=== PATIENT | male | born 1940 | race American Indian/Alaskan Native ===

== ENCOUNTER 2021-01-15 12:33 | Inpatient (IN) | payer MEDICARE ==
--- NOTE | 2021-01-15 12:40 | Emergency Department Report ---
ED General Adult HPI - General Chief complaint: Medical Clearance Stated complaint: I am fine, I do not know where I am PUI?: No Time Seen by Provider: 01/15/21 12:39 Source: patient, EMS ( EMS documentation not available at time of chart dictation ), RN notes reviewed Mode of arrival: Stretcher Limitations: Other (Dementia and poor historian) - History of Present Illness Initial comments: The patient was evaluated in the emergency department for symptoms described in the history of present illness. He/she was evaluated in the context of the global COVID-19 pandemic, which necessitated consideration that the patient might be at risk for infection with the virus that causes COVID-19. Institutional protocols and algorithms that pertain to the evaluation of patients at risk for COVID-19 are in a state of rapid change based on information released by regulatory bodies including the CDC and federal and state organizations. These policies and algorithms were followed during the patient's care in the emergency department. Please note that these policies, procedures and recommendations changed on a rapid basis. Patient is a 80-year-old gentleman, with a history of dementia, diabetes and high cholesterol. He is reportedly brought to the hospital by emergency medical services with a complaint of altered mental status, chest pain, weakness and hyperglycemia. The patient is not currently accompanied by friends or family at this time for collateral information. The patient states he has chest pain, but cannot further clarify the nature of his chest pain. He states that he is "fine", and denies abdominal pain. He denies headache, neck pain, abdominal pain, urinary symptoms, focal extremity weakness/numbness. The patient does not recall having history of diabetes. He does not know what medications he takes. The patient is not able to describe qualitative nature of symptoms, except as noted, exacerbating factors, relieving factors, or aggravating factors. At the moment, do not have contact information for family for collateral information at this time. History is thus limited. -: unknown Location: chest Quality: other Consistency: other Improves with: other Worsens with: other Associated Symptoms: other - Related Data Home Medications Medication Instructions Recorded Confirmed Last Taken Duloxetine HCl 60 mg PO QDAY 01/15/21 01/15/21 Unknown Memantine HCl 10 mg PO QDAY 01/15/21 01/15/21 Unknown Pregabalin 75 mg PO QDAY 01/15/21 01/15/21 Unknown Rosuvastatin Calcium 10 mg PO QDAY 01/15/21 01/15/21 Unknown donepeziL [Aricept] 10 mg PO QDAY 01/15/21 01/15/21 Unknown Allergies Allergy/AdvReac Type Severity Reaction Status Date / Time No Known Allergies Allergy Unverified 01/15/21 13:26 ED Review of Systems ROS: Stated complaint: HYPERGLYCEMIA Other details as noted in HPI Comment: Unobtainable due to pts medical conditions Constitutional: malaise Cardiovascular: chest pain Neurological: confusion ED Past Medical Hx - Medications Home Medications: Home Medications Medication Instructions Recorded Confirmed Last Taken Type Duloxetine HCl 60 mg PO QDAY 01/15/21 01/15/21 Unknown History Memantine HCl 10 mg PO QDAY 01/15/21 01/15/21 Unknown History Pregabalin 75 mg PO QDAY 01/15/21 01/15/21 Unknown History Rosuvastatin Calcium 10 mg PO QDAY 01/15/21 01/15/21 Unknown History donepeziL [Aricept] 10 mg PO QDAY 01/15/21 01/15/21 Unknown History ED Physical Exam - General Limitations: Other (Dementia) General appearance: in no apparent distress, anxious - Head Head exam: Present: atraumatic, normocephalic - Eye Eye exam: Present: normal appearance, EOMI. Absent: nystagmus - ENT ENT exam: Present: normal exam, normal orophraynx, mucous membranes moist, normal external ear exam - Neck Neck exam: Present: normal inspection, full ROM. Absent: tenderness, meningismus - Respiratory Respiratory exam: Present: normal lung sounds bilaterally. Absent: respiratory distress, wheezes, rales, rhonchi, stridor - Cardiovascular Cardiovascular Exam: Present: normal rhythm, tachycardia, normal heart sounds. Absent: bradycardia, irregular rhythm, systolic murmur, diastolic murmur, rubs, gallop - GI/Abdominal GI/Abdominal exam: Present: soft. Absent: distended, tenderness, guarding, rebound, rigid, pulsatile mass - Rectal Rectal exam: Present: deferred - Extremities Exam Extremities exam: Present: normal inspection, full ROM, other (2+ pulses noted in the bilateral upper and lower extremities. There is no palpable cord. negative Homans sign. Muscular compartments are soft. The pelvis is stable.). Absent: pedal edema, calf tenderness - Back Exam Back exam: Present: normal inspection, full ROM. Absent: tenderness, CVA tenderness (R), CVA tenderness (L), paraspinal tenderness, vertebral tenderness - Neurological Exam Neurological exam: Present: altered (The patient is awake to name, he follows commands.), other (No facial droop. Tongue midline. Extraocular movements intact bilaterally. Facial sensation intact to light touch in V1, V2, V3 distribution bilaterally. 5 and a 5 strength in 4 extremities. Sensation intact to light touch in 4 extremities.) - Psychiatric Psychiatric exam: Present: normal affect, normal mood - Skin Skin exam: Present: warm, dry, intact, normal color. Absent: rash ED Course Vital Signs 01/15/21 01/15/21 01/15/21 12:48 13:00 13:16 Pulse Rate 108 H 114 H 109 H Respiratory 13 16 18 Rate Blood Pressure 98/54 98/54 O2 Sat by Pulse 99 98 86 Oximetry 01/15/21 01/15/21 01/15/21 13:30 13:46 14:01 Pulse Rate 111 H 106 H Respiratory 14 12 Rate Blood Pressure 98/54 98/54 98/54 O2 Sat by Pulse 98 98 97 Oximetry 01/15/21 01/15/21 01/15/21 15:15 15:31 15:45 Pulse Rate 100 H 99 H 98 H Respiratory 13 13 15 Rate Blood Pressure 112/59 133/66 112/59 O2 Sat by Pulse 96 97 98 Oximetry 01/15/21 01/15/21 01/15/21 16:01 16:15 16:31 Pulse Rate 100 H 100 H 101 H Respiratory 13 14 14 Rate Blood Pressure 116/69 116/69 121/64 O2 Sat by Pulse 97 95 97 Oximetry - Reevaluation(s) Reevaluation #1: 01/15/21 13:25 Differential diagnosis, including but not limited to: Dementia, pneumonia, urinary tract infection, thyroid derangement, electrolyte derangement, toxic encephalopathy, metabolic encephalopathy, DKA, intracranial lesion GERD, gastritis, hiatal hernia, pneumonia, coronary artery disease, pulmonary embolism Assessment and plan: 80-year-old gentleman, who is demented, but awake, following commands, last known well time not explicitly known, awake to name, protecting airway, moving 4 extremities, with a complaint of chest pain, weakness, altered mental status and hyperglycemia. Place patient on monitor and storage bin tender. Obtain appropriate laboratory studies, EKG, urinalysis, rectal temperature, x-ray the chest, noncontrast CT scan of the brain, straight cath urine sample. Have requested that nursing team reconcile home medications. Have requested that management team/registration obtain phone number for family to obtain collateral information. Reassess after initial data points. We anticipate admission. 01/15/21 14:45 Patient found to have leukocytosis, likely stress reaction, although he is ruling in for systemic inflammatory response syndrome, manifest by tachycardia, lactic acidosis, uncertain of type a or type B, x-ray the chest shows pleural effusion, laboratory studies show venous pH of 7.1, potassium 5.9, anion gap 38, CO2 10, suspicious for diabetic ketoacidosis, renal insufficiency, lactic acidosis Noncontrast CT scan of the brain and chest are ordered, results are pending at this time. D-dimer elevated, although likely secondary to the aforementioned. Given renal insufficiency, nuclear medicine study is ordered. I do not appreciate a bleed or an acute finding on noncontrast CT scan of the brain. Hospital physician, Dr. Christiansen, to admit patient to the ICU for the aforementioned. I have also contacted our change agent, Dr. Prieto Montoya, discussed the patient's history, physical, pertinent laboratory studies and imaging studies, as well as overall clinical impression, she agrees with admission to the ICU, and critical care will follow in consultation. Reevaluation #2: 01/15/21 14:49 Hyperkalemia is appreciated, however, given presence of DKA, evidence of dehydration, this is likely a transcellular shift, whole body potassium is likely depleted. Therefore, between fluids and insulin, would not administer any additional therapy for elevated potassium at this time, will defer management to the inpatient team. Reevaluation #3: 01/15/21 14:[address] negative for acute findings. Reevaluation #4: 01/15/21 15:11 Nuclear medicine study is low probability for pulmonary embolism. - EJ/Peripheral Line Neck L Time Out Performed: Yes Indications: multiple IV sites needed Skin Cleansed in Sterile Fashion: Yes Size: 20 Dressing Placed: Tegaderm Patient Tolerated Procedure: well ED Medical Decision Making - Lab Data Result diagrams: 01/15/21 12:49 01/15/21 15:01 Lab Results 01/15/21 01/15/21 01/15/21 Range/Units 12:46 12:49 12:49 WBC 12.0 H (4.5-11.0) K/mm3 RBC 4.21 (3.65-5.03) M/mm3 Hgb 13.5 (11.8-15.2) gm/dl Hct 42.7 (35.5-45.6) % MCV 101 H (84-94) fl MCH 32 (28-32) pg MCHC 32 (32-34) % RDW 17.6 H (13.2-15.2) % Plt Count 310 (140-440) K/mm3 Lymph % (Auto) 3.7 L (13.4-35.0) % [place] % (Auto) 11.2 H (0.0-7.3) % Eos % (Auto) 0.0 (0.0-4.3) % Baso % (Auto) 0.4 (0.0-1.8) % Lymph # (Auto) 0.4 L (1.2-5.4) K/mm3 [place] # (Auto) 1.3 H (0.0-0.8) K/mm3 Eos # (Auto) 0.0 (0.0-0.4) K/mm3 Baso # (Auto) 0.0 (0.0-0.1) K/mm3 Seg Neutrophils % 84.7 H (40.0-70.0) % Seg Neutrophils # 10.1 H (1.8-7.7) K/mm3 PT 13.7 (12.2-14.9) Sec. INR 1.06 (0.87-1.13) D-Dimer 1959.83 H (0-234) ng/mlDDU VBG pH 7.152 L* (7.320-7.420) Sodium (137-145) mmol/L Potassium (3.6-5.0) mmol/L Chloride (98-107) mmol/L Carbon Dioxide (22-30) mmol/L Anion Gap mmol/L BUN (9-20) mg/dL Creatinine (0.8-1.3) mg/dL Estimated GFR ml/min BUN/Creatinine Ratio % Glucose (75-100) mg/dL POC Glucose (70-105) mg/dL Lactic Acid (0.7-2.0) mmol/L Calcium (8.4-10.2) mg/dL Magnesium (1.7-2.3) mg/dL Total Bilirubin (0.1-1.2) mg/dL AST (5-40) units/L ALT (7-56) units/L Alkaline Phosphatase (35-129) units/L Total Creatine Kinase (55-170) units/L Troponin T (0.00-0.029) ng/mL Total Protein (6.3-8.2) g/dL Albumin (3.9-5) g/dL Albumin/Globulin Ratio % TSH (0.270-4.200) mlU/mL Salicylates (2.8-20.0) mg/dL Acetaminophen (10.0-30.0) ug/mL 01/15/21 01/15/21 01/15/21 Range/Units 12:49 12:54 13:32 WBC (4.5-11.0) K/mm3 RBC (3.65-5.03) M/mm3 Hgb (11.8-15.2) gm/dl Hct (35.5-45.6) % MCV (84-94) fl MCH (28-32) pg MCHC (32-34) % RDW (13.2-15.2) % Plt Count (140-440) K/mm3 Lymph % (Auto) (13.4-35.0) % [place] % (Auto) (0.0-7.3) % Eos % (Auto) (0.0-4.3) % Baso % (Auto) (0.0-1.8) % Lymph # (Auto) (1.2-5.4) K/mm3 [place] # (Auto) (0.0-0.8) K/mm3 Eos # (Auto) (0.0-0.4) K/mm3 Baso # (Auto) (0.0-0.1) K/mm3 Seg Neutrophils % (40.0-70.0) % Seg Neutrophils # (1.8-7.7) K/mm3 PT (12.2-14.9) Sec. INR (0.87-1.13) D-Dimer (0-234) ng/mlDDU VBG pH (7.320-7.420) Sodium 133 L (137-145) mmol/L Potassium 5.9 H (3.6-5.0) mmol/L Chloride 91.2 L (98-107) mmol/L Carbon Dioxide 10 L (22-30) mmol/L Anion Gap 38 mmol/L BUN 34 H (9-20) mg/dL Creatinine 1.9 H (0.8-1.3) mg/dL Estimated GFR 42 ml/min BUN/Creatinine Ratio 18 % Glucose 644 H* (75-100) mg/dL POC Glucose > 600 H (70-105) mg/dL Lactic Acid (0.7-2.0) mmol/L Calcium 9.2 (8.4-10.2) mg/dL Magnesium 2.50 H (1.7-2.3) mg/dL Total Bilirubin 0.40 (0.1-1.2) mg/dL AST 39 (5-40) units/L ALT 21 (7-56) units/L Alkaline Phosphatase 164 H (35-129) units/L Total Creatine Kinase 113 (55-170) units/L Troponin T 0.012 (0.00-0.029) ng/mL Total Protein 7.7 (6.3-8.2) g/dL Albumin 3.6 L (3.9-5) g/dL Albumin/Globulin Ratio 0.9 % TSH (0.270-4.200) mlU/mL Salicylates (2.8-20.0) mg/dL Acetaminophen (10.0-30.0) ug/mL 01/15/21 01/15/21 01/15/21 Range/Units 13:32 13:32 13:32 WBC (4.5-11.0) K/mm3 RBC (3.65-5.03) M/mm3 Hgb (11.8-15.2) gm/dl Hct (35.5-45.6) % MCV (84-94) fl MCH (28-32) pg MCHC (32-34) % RDW (13.2-15.2) % Plt Count (140-440) K/mm3 Lymph % (Auto) (13.4-35.0) % [place] % (Auto) (0.0-7.3) % Eos % (Auto) (0.0-4.3) % Baso % (Auto) (0.0-1.8) % Lymph # (Auto) (1.2-5.4) K/mm3 [place] # (Auto) (0.0-0.8) K/mm3 Eos # (Auto) (0.0-0.4) K/mm3 Baso # (Auto) (0.0-0.1) K/mm3 Seg Neutrophils % (40.0-70.0) % Seg Neutrophils # (1.8-7.7) K/mm3 PT (12.2-14.9) Sec. INR (0.87-1.13) D-Dimer (0-234) ng/mlDDU VBG pH (7.320-7.420) Sodium (137-145) mmol/L Potassium (3.6-5.0) mmol/L Chloride (98-107) mmol/L Carbon Dioxide (22-30) mmol/L Anion Gap mmol/L BUN (9-20) mg/dL Creatinine (0.8-1.3) mg/dL Estimated GFR ml/min BUN/Creatinine Ratio % Glucose (75-100) mg/dL POC Glucose (70-105) mg/dL Lactic Acid (0.7-2.0) mmol/L Calcium (8.4-10.2) mg/dL Magnesium (1.7-2.3) mg/dL Total Bilirubin (0.1-1.2) mg/dL AST (5-40) units/L ALT (7-56) units/L Alkaline Phosphatase (35-129) units/L Total Creatine Kinase (55-170) units/L Troponin T (0.00-0.029) ng/mL Total Protein (6.3-8.2) g/dL Albumin (3.9-5) g/dL Albumin/Globulin Ratio % TSH 4.990 H (0.270-4.200) mlU/mL Salicylates < 0.3 L (2.8-20.0) mg/dL Acetaminophen 5.0 L (10.0-30.0) ug/mL 01/15/21 Range/Units 13:32 WBC (4.5-11.0) K/mm3 RBC (3.65-5.03) M/mm3 Hgb (11.8-15.2) gm/dl Hct (35.5-45.6) % MCV (84-94) fl MCH (28-32) pg MCHC (32-34) % RDW (13.2-15.2) % Plt Count (140-440) K/mm3 Lymph % (Auto) (13.4-35.0) % [place] % (Auto) (0.0-7.3) % Eos % (Auto) (0.0-4.3) % Baso % (Auto) (0.0-1.8) % Lymph # (Auto) (1.2-5.4) K/mm3 [place] # (Auto) (0.0-0.8) K/mm3 Eos # (Auto) (0.0-0.4) K/mm3 Baso # (Auto) (0.0-0.1) K/mm3 Seg Neutrophils % (40.0-70.0) % Seg Neutrophils # (1.8-7.7) K/mm3 PT (12.2-14.9) Sec. INR (0.87-1.13) D-Dimer (0-234) ng/mlDDU VBG pH (7.320-7.420) Sodium (137-145) mmol/L Potassium (3.6-5.0) mmol/L Chloride (98-107) mmol/L Carbon Dioxide (22-30) mmol/L Anion Gap mmol/L BUN (9-20) mg/dL Creatinine (0.8-1.3) mg/dL Estimated GFR ml/min BUN/Creatinine Ratio % Glucose (75-100) mg/dL POC Glucose (70-105) mg/dL Lactic Acid 5.40 H* (0.7-2.0) mmol/L Calcium (8.4-10.2) mg/dL Magnesium (1.7-2.3) mg/dL Total Bilirubin (0.1-1.2) mg/dL AST (5-40) units/L ALT (7-56) units/L Alkaline Phosphatase (35-129) units/L Total Creatine Kinase (55-170) units/L Troponin T (0.00-0.029) ng/mL Total Protein (6.3-8.2) g/dL Albumin (3.9-5) g/dL Albumin/Globulin Ratio % TSH (0.270-4.200) mlU/mL Salicylates (2.8-20.0) mg/dL Acetaminophen (10.0-30.0) ug/mL Vital Signs 01/15/21 01/15/21 01/15/21 12:48 13:00 13:16 Pulse Rate 108 H 114 H 109 H Respiratory 13 16 18 Rate Blood Pressure 98/54 98/54 O2 Sat by Pulse 99 98 86 Oximetry 01/15/21 01/15/21 01/15/21 13:30 13:46 14:01 Pulse Rate 111 H 106 H Respiratory 14 12 Rate Blood Pressure 98/54 98/54 98/54 O2 Sat by Pulse 98 98 97 Oximetry - EKG Data -: EKG Interpreted by Sc EKG shows normal: sinus rhythm Rate: tachycardia - EKG Data 01/15/21 14:44 EKG interpreted at 13: 49 Sinus rhythm, tachycardia, 108 bpm. Normal axis, left ventricular hypertrophy, minimal motion artifact, this is an abnormal EKG, this is not a STEMI. - Radiology Data Radiology results: pending, report reviewed, image reviewed [facility] [address] [place] [address] XRay Report Signed Patient: THEA OLEA MR#: [id number] : 1940 Acct:[id number] Age/Sex: 80 / M ADM Date: 01/15/21 Loc: ED Attending Dr: Ordering Physician: LULA CASTANEDA MD Date of Service: 01/15/21 Procedure(s): XR chest 1V ap Accession Number(s): [id number] cc: LULA CASTANEDA MD Fluoro Time In Minutes: CHEST 1 VIEW INDICATION: cp tachycardia. COMPARISON: None FINDINGS: Support devices: None. Heart: Within normal limits. Lungs/Pleura: Small right pleural effusion and mild right basilar atelectasis is identified. The right upper lung and left lung are clear. No pneumothorax. Additional findings: None. IMPRESSION: Small right pleural effusion. Signer Name: Bobo Suazo Jr, MD Signed: 01/15/2021 1:42 PM Workstation Name: [id number] Transcribed By: TTR Dictated By: BOBO SUAZO JR, MD Electronically Authenticated By: BOBO SUAZO JR, MD Signed Date/Time: 01/15/21 1342 DD/ 1342 [facility] [address] [place] [id number] Cat Scan Report Signed Patient: THEA OLEA MR#: [id number] : 1940 Acct:[id number] Age/Sex: 80 / M ADM Date: 01/15/21 Loc: ED Attending Dr: Ordering Physician: LULA CASTANEDA MD Date of Service: 01/15/21 Procedure(s): CT chest wo con Accession Number(s): [id number] cc: LULA CASTANEDA MD CT CHEST WITHOUT CONTRAST INDICATION / CLINICAL INFORMATION: Tachycardia, right-sided pleural effusion. TECHNIQUE: Axial CT images were obtained through the chest without contrast. All CT scans at this location are performed using CT dose reduction for ALARA by means of automated exposure control. COMPARISON: None available. FINDINGS: There is a moderate right pleural effusion. Emphysematous changes seen within the lungs bilaterally with atelectasis in the right lower lung. There is fluid within the esophagus is slightly dilated. Visualized portions of the upper abdomen appear normal. Heart size appears normal IMPRESSION: 1. Moderate right effusion with lower lobe atelectasis. Signer Name: Christian Russo MD Signed: 01/15/2021 2:42 PM Workstation Name: [id number] Transcribed By: CW Dictated By: LU RUSSO MD Electronically Authenticated By: LU RUSSO MD Signed Date/Time: 01/15/21 1442 DD/ 1440 Critical Care Time: Yes Critical care time in (mins) excluding proc time.: 45 Critical care attestation.: If time is entered above; I have spent that time in minutes in the direct care of this critically ill patient, excluding procedure time. ED Disposition Clinical Impression: Diabetic ketoacidosis, Systemic inflammatory response syndrome (SIRS), Renal insufficiency, Dehydration, Pleural effusion, Acute encephalopathy, Dementia, History of chest pain Disposition: OP ADMIT IP TO THIS HOSP Is pt being admited?: Yes Does the pt Need Aspirin: No Condition: Serious Heart Score - HEART Score History: Slightly suspicious EKG: Non-specific Age: > 65 Risk factors: 1-2 risk factors Troponin: < normal limit HEART Score: 4 - EKG Read Time Time EKG Completed: 13:49 EKG Read Time: 13:49 - Critical Actions Critical Actions: 4-6 pts:12-16.6% risk of adverse cardiac event. Should be admitted
[2021-01-15] MEDS ORDERED: LACTATED RINGERS 1,000 ML IV ONE (13:01)
[2021-01-15 13:35] LABS: Basophils % (Auto) 0.4 % (0.0-1.8); Hematocrit 42.7 % (35.5-45.6); Hemoglobin 13.5 gm/dl (11.8-15.2); Lymphocytes # (Auto) 0.4 K/mm3 (1.2-5.4); Lymphocytes % (Auto) 3.7 % (13.4-35.0); Mean Corpuscular HGB Conc 32 % (32-34); Mean Corpuscular Volume 101 fl (84-94); Monocytes # (Auto) 1.3 K/mm3 (0.0-0.8); Monocytes % (Auto) 11.2 % (0.0-7.3); Platelet Count 310 K/mm3 (140-440); Red Blood Count 4.21 M/mm3 (3.65-5.03); Red Cell Distribution Width 17.6 % (13.2-15.2)
[2021-01-15 13:40] LABS: INR 1.06 (0.87-1.13)
--- NOTE | 2021-01-15 13:46 | XRay Report ---
CHEST 1 VIEW INDICATION: cp tachycardia. COMPARISON: None FINDINGS: Support devices: None. Heart: Within normal limits. Lungs/Pleura: Small right pleural effusion and mild right basilar atelectasis is identified. The righ t upper lung and left lung are clear. No pneumothorax. Additional findings: None. IMPRESSION: Small right pleural effusion. Signer Name: Bobo Suazo Jr, MD Signed: 01/15/2021 1:42 PM Workstation Name: [id number]
[2021-01-15 14:11] LABS: Albumin 3.6 g/dL (3.9-5); Calcium 9.2 mg/dL (8.4-10.2)
[2021-01-15] MEDS ORDERED: cefTRIAXone/NS 2 GM/100 ML 2 GM/100 ML BAG IV ONE (14:13)
[2021-01-15] MEDS ORDERED: SODIUM CHLORIDE 0.9% 1000 ML 1,000 ML IV ONE (14:40)
[2021-01-15] MEDS ORDERED: DEXTROSE 50% IN WATER (25GM) 50 ML SYRINGE IV PRN (14:40)
[2021-01-15] MEDS ORDERED: AZITHROMYCIN/NS 500 MG/250 ML 500 MG/250 ML BAG IV ONE (14:40)
[2021-01-15] MEDS ORDERED: INSULIN REGULAR, HUMAN 100 UNITS/1 ML IV ONE (14:42)
[2021-01-15] MEDS ORDERED: SODIUM CHLORIDE 0.9% 1000 ML 2,000 ML IV ONE (14:42)
[2021-01-15] MEDS ORDERED: ALBUTEROL 2.5 MG/3 ML NEBU IH PRN (14:45)
--- NOTE | 2021-01-15 14:47 | Cat Scan Report ---
CT CHEST WITHOUT CONTRAST INDICATION / CLINICAL INFORMATION: Tachycardia, right-sided pleural effusion. TECHNIQUE: Axial CT images were obtained through the chest without contrast. All CT scans at this location are p erformed using CT dose reduction for ALARA by means of automated exposure control. COMPARISON: None available. FINDINGS: There is a moderate right pleural effusion. Emphysematous changes seen within the lungs bilaterally w ith atelectasis in the right lower lung. There is fluid within the esophagus is slightly dilated. Vis ualized portions of the upper abdomen appear normal. Heart size appears normal IMPRESSION: 1. Moderate right effusion with lower lobe atelectasis. Signer Name: Christian Russo MD Signed: 01/15/2021 2:42 PM Workstation Name: [id number]
--- NOTE | 2021-01-15 14:51 | History and Physical Report ---
History of Present Illness Chief complaint: His blood sugar is high History of present illness: 80 YO Male with Vascular Dementia, Cerebral Atherosclerosis, HLD, DM presents to ED for evaluation. Patient is confused with diminished cognition at the time my evaluation is unable to provide history. Patient history taken from EMS staff, ED staff, as well as patient family was at bedside during exam and interview. As per family, the patient has experienced increased confusion and weakness over the past 2 days. The patient was found to have an elevated blood glucose today. EMS was subsequently notified and upon arrival the patient was found to be in distress and subsequently transported to [facility] for further care and evaluation of the aforementioned symptoms. The patient was seen and evaluated in the emergency department. All lab and image studies reviewed. Patient found to have diabetic ketoacidosis, TONI with ATN, metabolic acidosis as well as systemic inflammatory response syndrome. Patient admitted to ICU and initiated on insulin drip as well as IV fluid resuscitation therapy. Critical care team c onsulted. No reports of fever, chills, chest pain, palpitation, productive cough, skin rash, recent ill contacts, or known exposure to COVID-19. Patient has diminished cognition at the time my evaluation but has a positive gag reflex and is able to protect his airway without difficulty. Advanced care planning conducted in ED. Past History Past Medical History: diabetes, hypertension, hyperlipidemia, other (See HPI) Past Surgical History: No surgical history, Other (Reviewed) Social history: , lives with family. denies: smoking, alcohol abuse, prescription drug abuse Family history: diabetes, hypertension Medications and Allergies Allergies Allergy/AdvReac Type Severity Reaction Status Date / Time No Known Allergies Allergy Unverified 01/15/21 13:26 Home Medications Medication Instructions Recorded Confirmed Last Taken Type Duloxetine HCl 60 mg PO QDAY 01/15/21 01/15/21 Unknown History Memantine HCl 10 mg PO QDAY 01/15/21 01/15/21 Unknown History Pregabalin 75 mg PO QDAY 01/15/21 01/15/21 Unknown History Rosuvastatin Calcium 10 mg PO QDAY 01/15/21 01/15/21 Unknown History donepeziL [Aricept] 10 mg PO QDAY 01/15/21 01/15/21 Unknown History Active Meds: Active Medications Albuterol (Albuterol 2.5 Mg/3 Ml Nebu) 2.5 mg IH Q3HRT PRN PRN Reason: Shortness Of Breath Dextrose (Dextrose 50% In Water (25gm) 50 Ml Syringe) 0 ml IV Q30MIN PRN; Protocol PRN Reason: Hypoglycemia Donepezil HCl (Donepezil 10 Mg Tab) 10 mg PO QDAY STEPHANIE Insulin Human Regular 100 (units/ Sodium Chloride) 100 mls @ 1 mls/hr IV TITR STEPHANIE; Protocol Sodium Chloride (Nacl 0.9% 1000 Ml) 1,000 mls @ 999 mls/hr IV BOLUS ONE Stop: 01/15/21 15:40 Potassium Chloride/Dextrose/Sod Cl (D5w/0.45% Nacl/Kcl 20 Meq) 20 meq in 1,000 mls @ 125 mls/hr IV DIRECT STEPHANIE Azithromycin (Zithromax/Ns) 500 mg in 250 mls @ 250 mls/hr IV ONCE ONE; Protocol Stop: 01/15/21 15:39 Memantine (Memantine 10 Mg Tab) 10 mg PO QDAY STEPHANIE Miscellaneous Medication (Duloxetine Hcl [Duloxetine Hcl]) 60 mg PO QDAY STEPHANIE Miscellaneous Medication (Rosuvastatin Calcium [Rosuvastatin Calcium]) 10 mg PO QDAY STEPHANIE Pregabalin (Pregabalin 75 Mg Cap) 75 mg PO QDAY STEPHANIE Sodium Chloride (Sodium Chloride 0.9% 10 Ml Flush Syringe) 10 ml IV BID STEPHANIE Sodium Chloride (Sodium Chloride 0.9% 10 Ml Flush Syringe) 10 ml IV PRN PRN PRN Reason: LINE FLUSH Review of Systems ROS unobtainable: due to mental status Exam - Constitutional Vitals: Temp Pulse Resp BP Pulse Ox 106 H 12 98/54 97 01/15/21 14:01 01/15/21 14:01 01/15/21 14:01 01/15/21 14:01 General appearance: Present: mild distress - EENT Eyes: Present: PERRL ENT: hearing intact, clear oral mucosa - Neck Neck: Present: supple, normal ROM - Respiratory Respiratory effort: normal Respiratory: bilateral: CTA - Cardiovascular Heart Sounds: Present: S1 & S2. Absent: rub, click - Extremities Extremities: pulses symmetrical, No edema Peripheral Pulses: within normal limits - Abdominal General gastrointestinal: Present: soft, non-tender, non-distended, normal bowel sounds Male genitourinary: Present: normal - Integumentary Integumentary: Present: clear, warm, dry - Musculoskeletal Musculoskeletal: generalized weakness - Psychiatric Psychiatric: appropriate mood/affect, no intact judgment & insight, no memory intact - Neurologic Neurologic: CNII-XII intact, no focal deficits, moves all extremities, no gait normal HEART Score - HEART Score EKG: Non-specific Age: > 65 Risk factors: 1-2 risk factors Troponin: Troponin T 0.012 ng/mL (0.00-0.029) 01/15/21 13:32 Troponin: < normal limit - Critical Actions Critical Actions: 4-6 pts:12-16.6% risk of adverse cardiac event. Should be admitted Results - Labs CBC & Chem 7: 01/15/21 12:49 01/15/21 16:31 Labs: Abnormal lab results 01/15/21 01/15/21 01/15/21 Range/Units 12:46 12:49 12:49 WBC 12.0 H (4.5-11.0) K/mm3 MCV 101 H (84-94) fl RDW 17.6 H (13.2-15.2) % Lymph % (Auto) 3.7 L (13.4-35.0) % [place] % (Auto) 11.2 H (0.0-7.3) % Lymph # (Auto) 0.4 L (1.2-5.4) K/mm3 [place] # (Auto) 1.3 H (0.0-0.8) K/mm3 Seg Neutrophils % 84.7 H (40.0-70.0) % Seg Neutrophils # 10.1 H (1.8-7.7) K/mm3 D-Dimer 1959.83 H (0-234) ng/mlDDU VBG pH 7.152 L* (7.320-7.420) Sodium (137-145) mmol/L Potassium (3.6-5.0) mmol/L Chloride (98-107) mmol/L Carbon Dioxide (22-30) mmol/L BUN (9-20) mg/dL Creatinine (0.8-1.3) mg/dL Glucose (75-100) mg/dL POC Glucose (70-105) mg/dL Lactic Acid (0.7-2.0) mmol/L Magnesium (1.7-2.3) mg/dL Alkaline Phosphatase (35-129) units/L Albumin (3.9-5) g/dL TSH (0.270-4.200) mlU/mL Salicylates (2.8-20.0) mg/dL Acetaminophen (10.0-30.0) ug/mL 01/15/21 01/15/21 01/15/21 Range/Units 12:49 12:54 13:32 WBC (4.5-11.0) K/mm3 MCV (84-94) fl RDW (13.2-15.2) % Lymph % (Auto) (13.4-35.0) % [place] % (Auto) (0.0-7.3) % Lymph # (Auto) (1.2-5.4) K/mm3 [place] # (Auto) (0.0-0.8) K/mm3 Seg Neutrophils % (40.0-70.0) % Seg Neutrophils # (1.8-7.7) K/mm3 D-Dimer (0-234) ng/mlDDU VBG pH (7.320-7.420) Sodium 133 L (137-145) mmol/L Potassium 5.9 H (3.6-5.0) mmol/L Chloride 91.2 L (98-107) mmol/L Carbon Dioxide 10 L (22-30) mmol/L BUN 34 H (9-20) mg/dL Creatinine 1.9 H (0.8-1.3) mg/dL Glucose 644 H* (75-100) mg/dL POC Glucose > 600 H (70-105) mg/dL Lactic Acid (0.7-2.0) mmol/L Magnesium 2.50 H (1.7-2.3) mg/dL Alkaline Phosphatase 164 H (35-129) units/L Albumin 3.6 L (3.9-5) g/dL TSH 4.990 H (0.270-4.200) mlU/mL Salicylates (2.8-20.0) mg/dL Acetaminophen (10.0-30.0) ug/mL 01/15/21 01/15/21 01/15/21 Range/Units 13:32 13:32 13:32 WBC (4.5-11.0) K/mm3 MCV (84-94) fl RDW (13.2-15.2) % Lymph % (Auto) (13.4-35.0) % [place] % (Auto) (0.0-7.3) % Lymph # (Auto) (1.2-5.4) K/mm3 [place] # (Auto) (0.0-0.8) K/mm3 Seg Neutrophils % (40.0-70.0) % Seg Neutrophils # (1.8-7.7) K/mm3 D-Dimer (0-234) ng/mlDDU VBG pH (7.320-7.420) Sodium (137-145) mmol/L Potassium (3.6-5.0) mmol/L Chloride (98-107) mmol/L Carbon Dioxide (22-30) mmol/L BUN (9-20) mg/dL Creatinine (0.8-1.3) mg/dL Glucose (75-100) mg/dL POC Glucose (70-105) mg/dL Lactic Acid 5.40 H* (0.7-2.0) mmol/L Magnesium (1.7-2.3) mg/dL Alkaline Phosphatase (35-129) units/L Albumin (3.9-5) g/dL TSH (0.270-4.200) mlU/mL Salicylates < 0.3 L (2.8-20.0) mg/dL Acetaminophen 5.0 L (10.0-30.0) ug/mL Assessment and Plan - Patient Problems (1) Diabetic ketoacidosis Current Visit: Yes Status: Acute Plan to address problem: DKA protocol: Admit to ICU, insulin drip, IV fluid resuscitation therapy, serial BMP, monitor anion gap, supportive care. The high probability of a clinically significant, sudden or life threatening deterioration of the [endocrine, renal, neuro] system(s) required my full and direct attention, intervention and personal management. The aggregate critical care time was [65] minutes. This time is in addition to time spent performing reported procedures but includes the following: [x] Data Review and interpretation [x] Patient assessment and monitoring of vital signs [x] Documentation [x] Medication orders and management (2) Systemic inflammatory response syndrome (SIRS) Current Visit: Yes Status: Acute Plan to address problem: CBC, CMP, empiric IV antibiotic therapy x1 dose (3) Acidosis Current Visit: Yes Status: Acute Plan to address problem: IV fluid resuscitation therapy, BMP, repeat BMP in a.m. (4) Acute kidney injury (TONI) with acute tubular necrosis (ATN) Current Visit: Yes Status: Acute Plan to address problem: IV fluid resuscitation therapy, monitor urine output every shift, avoid nephrotoxic agents, repeat BMP in a.m. to monitor serum creatinine as well as GFR (5) DVT prophylaxis Current Visit: Yes Status: Acute Plan to address problem: SCD to bilateral lower extremities while in bed, patient is ambulatory (6) Advance care planning Current Visit: Yes Status: Acute Plan to address problem: Disease education conducted, care plan discussed, diagnosis discussed, prognosis discussed, patient is full code, patient family acknowledges understanding agreement with care plan, +30 minutes.
--- NOTE | 2021-01-15 14:51 | Cat Scan Report ---
NONENHANCED CT SCAN OF THE HEAD: INDICATION / CLINICAL INFORMATION: 80 years Male; ams weakness. TECHNIQUE: Routine CT head without contrast. All CT scans at this location are performed using CT dos e reduction for ALARA by means of automated exposure control. COMPARISON: None. FINDINGS: BRAIN / INTRACRANIAL CONTENTS: No acute hemorrhage, mass effect, midline shift, hydrocephalus, or acu te, large territorial infarct. Moderate cortical involution No significant white matter abnormality. Dilatation of temporal horn tips suggesting marked volume loss in the hippocampi CRANIOCERVICAL JUNCTION: No significant abnormality. ORBITS: No significant abnormality of visualized orbits. SINUSES / MASTOIDS: No significant abnormality of the visualized paranasal sinuses or mastoid air william ls. ADDITIONAL FINDINGS: None. IMPRESSION: No focal mass, hemorrhage, hydrocephalus, or acute, large territorial infarct. Moderate cortical involution; marked volume loss in the hippocampi Signer Name: Riya Johnson MD Signed: 01/15/2021 2:46 PM Workstation Name: [id number]
[2021-01-15] MEDS ORDERED: ASPIRIN 81 MG TAB CHEW PO ONE (14:54)
[2021-01-15] MEDS ORDERED: INSULIN REGULAR, HUMAN 100 UNITS in SODIUM CHLORIDE 0.9% 99 ML IV SCH (15:00)
[2021-01-15] MEDS ORDERED: SODIUM CHLORIDE 0.9% 1000 ML 1,000 ML IV SCH (15:00)
[2021-01-15] MEDS ORDERED: D5W/0.45% NACL/KCL 20 MEQ 20 MEQ/1,000 ML BAG IV SCH (15:00)
--- NOTE | 2021-01-15 15:05 | Nuclear Medicine Report ---
NM perfusion only lung scan INDICATION / CLINICAL INFORMATION: cp tachycardia + d dimer. TRACER: Technetium 99m MAA 5.1 mCi IV injection. COMPARISON: Chest x-ray earlier the same day. FINDINGS: Following injection of the above tracer, imaging was performed in 8 projections. Physiologic tracer uptake is present. Negative for suspicious perfusion defect. IMPRESSION: No suspicious perfusion defect. Signer Name: Ayush Wayne MD Signed: 01/15/2021 3:00 PM Workstation Name: [id number]
[2021-01-15 15:40] LABS: Calcium 9.2 mg/dL (8.4-10.2)
--- NOTE | 2021-01-15 16:20 | Consultation ---
History of Present Illness Consult date: 01/15/21 Requesting physician: ALTA ABARCA History of present illness: HISTORY PER ER- PATIENT IS UNABLE TO GIVE RELIABLE INFORMATION - Patient was seen in the ED. When I asked him where he lived, he said he didn't know. I asked him who he live with, "I think I have a " Patient is a 80-year-old gentleman, with a history of dementia, diabetes and high cholesterol. He is reportedly brought to the hospital by emergency medical services with a complaint of altered mental status, chest pain, weakness and hyperglycemia. The patient is not currently accompanied by friends or family at this time for collateral information. The patient states he has chest pain, but cannot further clarify the nature of his chest pain. He states that he is "fine", and denies abdominal pain. He denies headache, neck pain, abdominal pain, urinary symptoms, focal extremity weakness/numbness. The patient does not recall having history of diabetes. He does not know what medications he takes. The patient is not able to describe qualitative nature of symptoms, except as noted, exacerbating factors, relieving factors, or aggravating factors. Patient was seen and examined. Vitals, labs, medications,chart and imaging were reviewed. He is lying down comfortably in bed, in no acute distress at this time Medications and Allergies Allergies Allergy/AdvReac Type Severity Reaction Status Date / Time No Known Allergies Allergy Unverified 01/15/21 13:26 Home Medications Medication Instructions Recorded Confirmed Last Taken Type Duloxetine HCl 60 mg PO QDAY 01/15/21 01/15/21 Unknown History Memantine HCl 10 mg PO QDAY 01/15/21 01/15/21 Unknown History Pregabalin 75 mg PO QDAY 01/15/21 01/15/21 Unknown History Rosuvastatin Calcium 10 mg PO QDAY 01/15/21 01/15/21 Unknown History donepeziL [Aricept] 10 mg PO QDAY 01/15/21 01/15/21 Unknown History Active Meds: Active Medications Albuterol (Albuterol 2.5 Mg/3 Ml Nebu) 2.5 mg IH Q3HRT PRN PRN Reason: Shortness Of Breath Atorvastatin Calcium (Atorvastatin 20 Mg Tab) 20 mg PO QHS STEPHANIE Dextrose (Dextrose 50% In Water (25gm) 50 Ml Syringe) 0 ml IV Q30MIN PRN; Protocol PRN Reason: Hypoglycemia Donepezil HCl (Donepezil 10 Mg Tab) 10 mg PO QDAY STEPHANIE Duloxetine HCl (Duloxetine 30 Mg Cap) 60 mg PO QDAY STEPHANIE Insulin Human Regular 100 (units/ Sodium Chloride) 100 mls @ 1 mls/hr IV TITR STEPHANIE; Protocol Potassium Chloride/Dextrose/Sod Cl (D5w/0.45% Nacl/Kcl 20 Meq) 20 meq in 1,000 mls @ 125 mls/hr IV DIRECT STEPHANIE Sodium Chloride (Nacl 0.9% 1000 Ml) 1,000 mls @ 100 mls/hr IV DIRECT STEPHANIE Memantine (Memantine 10 Mg Tab) 10 mg PO QDAY STEPHANIE Pregabalin (Pregabalin 75 Mg Cap) 75 mg PO QDAY STEPHANIE Sodium Chloride (Sodium Chloride 0.9% 10 Ml Flush Syringe) 10 ml IV BID STEPHANIE Sodium Chloride (Sodium Chloride 0.9% 10 Ml Flush Syringe) 10 ml IV PRN PRN PRN Reason: LINE FLUSH Review of Systems ROS unobtainable: due to mental status Physical Examination Vital signs: Vital Signs Pulse Resp Pulse Ox 108 H 13 99 01/15/21 12:48 01/15/21 12:48 01/15/21 12:48 General appearance: no acute distress, alert Eyes: non-icteric ENT: oropharynx dry Neck: supple, no lymphadenopathy, no JVD Effort: normal Ascultation: Bilateral: clear, diminished breath sounds Cardiovascular: regular rate and rhythm, other (S1,S2) Gastrointestinal: normoactive bowel sounds, soft, non-tender Integumentary: normal Extremities: no cyanosis, no edema, pulses normal non-focal exam, pupils equal and round mood appropriate Results - Laboratory Findings CBC and BMP: 01/15/21 12:49 01/16/21 08:42 PT/INR, D-dimer PT 13.7 Sec. (12.2-14.9) 01/15/21 12:49 INR 1.06 (0.87-1.13) 01/15/21 12:49 D-Dimer 1959.83 ng/mlDDU (0-234) H 01/15/21 12:49 Abnormal lab findings: Abnormal Labs 01/15/21 01/15/21 01/15/21 12:46 12:49 12:49 WBC 12.0 H MCV 101 H RDW 17.6 H Lymph % (Auto) 3.7 L [place] % (Auto) 11.2 H Lymph # (Auto) 0.4 L [place] # (Auto) 1.3 H Seg Neutrophils % 84.7 H Seg Neutrophils # 10.1 H D-Dimer 1959.83 H VBG pH 7.152 L* Sodium Potassium Chloride Carbon Dioxide BUN Creatinine Glucose POC Glucose Lactic Acid Magnesium Alkaline Phosphatase Albumin TSH Salicylates Acetaminophen 01/15/21 01/15/21 01/15/21 12:49 12:54 13:32 WBC MCV RDW Lymph % (Auto) [place] % (Auto) Lymph # (Auto) [place] # (Auto) Seg Neutrophils % Seg Neutrophils # D-Dimer VBG pH Sodium 133 L Potassium 5.9 H Chloride 91.2 L Carbon Dioxide 10 L BUN 34 H Creatinine 1.9 H Glucose 644 H* POC Glucose > 600 H Lactic Acid Magnesium 2.50 H Alkaline Phosphatase 164 H Albumin 3.6 L TSH 4.990 H Salicylates Acetaminophen 01/15/21 01/15/21 01/15/21 13:32 13:32 13:32 WBC MCV RDW Lymph % (Auto) [place] % (Auto) Lymph # (Auto) [place] # (Auto) Seg Neutrophils % Seg Neutrophils # D-Dimer VBG pH Sodium Potassium Chloride Carbon Dioxide BUN Creatinine Glucose POC Glucose Lactic Acid 5.40 H* Magnesium Alkaline Phosphatase Albumin TSH Salicylates < 0.3 L Acetaminophen 5.0 L 01/15/21 01/15/21 01/15/21 15:01 15:01 15:01 WBC MCV RDW Lymph % (Auto) [place] % (Auto) Lymph # (Auto) [place] # (Auto) Seg Neutrophils % Seg Neutrophils # D-Dimer VBG pH Sodium 133 L Potassium 5.2 H Chloride 95.2 L Carbon Dioxide 15 L BUN 34 H Creatinine 1.8 H Glucose 560 H* POC Glucose Lactic Acid 5.30 H* Magnesium 2.40 H Alkaline Phosphatase Albumin TSH Salicylates Acetaminophen - Diagnostic Findings Chest x-ray: image reviewed (Right pleural effusion) CT scan - chest: image reviewed (Right pleural effusion with compression atelectasis) Additional studies: V/Q scan- No suspicion of perfusion defect Assessment and Plan (1) Diabetic ketoacidosis Current Visit: Yes Status: Acute Plan to address problem: DKA protocol: Admit to ICU, insulin drip, IV fluid resuscitation therapy, serial BMP, monitor anion gap, supportive care. The high probability of a clinically significant, sudden or life threatening deterioration of the [endocrine, renal, neurology] system(s) required my full and direct attention, intervention and personal management. The aggregate critical care time was [35] minutes. This time is in addition to time spent performing reported procedures but includes the following: [x] Data Review and interpretation [x] Patient assessment and monitoring of vital signs [x] Documentation [x] Medication orders and management (2) Systemic inflammatory response syndrome (SIRS) Current Visit: Yes Status: Acute Plan to address problem: CBC, CMP, empiric IV antibiotics De-escalate antibiotics based on clinical response and culture data as it becomes available (3) Acidosis Current Visit: Yes Status: Acute Plan to address problem: IV fluid resuscitation therapy, BMP ABG to better assess acid-base balance (4) Acute kidney injury (TONI) with acute tubular necrosis (ATN) Current Visit: Yes Status: Acute Plan to address problem: IV fluid resuscitation therapy, monitor urine output every shift, avoid nephrotoxic agents, repeat BMP in a.m. to monitor serum creatinine as well as GFR (5) DVT prophylaxis Current Visit: Yes Status: Acute Plan to address problem: Heparin
[2021-01-15 16:55] LABS: Calcium 8.8 mg/dL (8.4-10.2)
[2021-01-15 17:42] LABS: Calcium 8.2 mg/dL (8.4-10.2)
[2021-01-15] MEDS ORDERED: HYDROmorphone 1 MG/1 ML INJ IV PRN (18:09)
[2021-01-15 22:38] LABS: BUN/Creatinine Ratio 22; Blood Urea Nitrogen 26 mg/dL (9-20); Calcium 8.6 mg/dL (8.4-10.2); Hemolysis Index 3
[2021-01-16 03:15] LABS: BUN/Creatinine Ratio 22; Blood Urea Nitrogen 22 mg/dL (9-20); Calcium 8.4 mg/dL (8.4-10.2); Hemolysis Index 4
[2021-01-16 09:30] LABS: BUN/Creatinine Ratio 17; Blood Urea Nitrogen 17 mg/dL (9-20); Calcium 8.2 mg/dL (8.4-10.2); Hemolysis Index 13
[2021-01-16] MEDS ORDERED: NON-FORMULARY EACH (Duloxetine Hcl [Duloxetine Hcl] 60 MG Capsule.Dr) PO SCH (10:00)
[2021-01-16] MEDS ORDERED: ROSUVASTATIN CALCIUM 10 MG PO SCH (10:00)
[2021-01-16] MEDS: MEMANTINE 10 MG TAB PO SCH (10:20)
[2021-01-16] MEDS: DULoxetine 30 MG CAP PO SCH (10:44)
[2021-01-16] MEDS: DONEPEZIL 10 MG TAB PO SCH (10:44)
[2021-01-16] MEDS: PREGABALIN 75 MG CAP PO SCH (10:47)
--- NOTE | 2021-01-16 11:04 | Progress Note ---
Assessment and Plan (1) Diabetic ketoacidosis Current Visit: Yes Status: Acute Plan to address problem: Gap has closed. 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 Primary Attending, is trying to get in touch with his family (2) Systemic inflammatory response syndrome (SIRS) Current Visit: Yes Status: Acute Plan to address problem: CBC, CMP, empiric IV antibiotics De-escalate antibiotics based on clinical response and culture data as it becomes available (3) Acidosis Current Visit: Yes Status: Acute Plan to address problem: Monitor (4) Acute kidney injury (TONI) with acute tubular necrosis (ATN) Current Visit: Yes Status: Acute Plan to address problem: Continue to avoid nephrotoxic agents (5) DVT prophylaxis Current Visit: Yes Status: Acute Plan to address problem: Heparin Subjective Date of service: 01/16/21 Interval history: Follow up for DKA; SIRS Seen and examined. Vitals, labs, medications,chart reviewed. No acute overnight events, off insulin infusion. On going short term memory loss. Discussed with nursing staff and primary Attending. Patient denies any chest pain, no shortness of breath, no fevers or chills. No nausea or vomiting, no diarrhea. Objective Vital Signs - 12hr 01/15/21 01/15/21 01/15/21 23:14 23:15 23:31 Temperature 98.2 F Pulse Rate 92 H 95 H Pulse Rate [ From Monitor] Respiratory 11 L 11 L Rate Blood Pressure 116/57 121/67 O2 Sat by Pulse 98 97 Oximetry 01/15/21 01/16/21 01/16/21 23:45 00:00 00:15 Temperature Pulse Rate 96 H 95 H 98 H Pulse Rate [ 92 H From Monitor] Respiratory 9 L 11 L 8 L Rate Blood Pressure 112/64 111/64 118/68 O2 Sat by Pulse 97 98 97 Oximetry 01/16/21 01/16/21 01/16/21 00:31 00:45 01:00 Temperature Pulse Rate 103 H 97 H 95 H Pulse Rate [ From Monitor] Respiratory 12 9 L 12 Rate Blood Pressure 111/64 106/63 100/59 O2 Sat by Pulse 87 99 100 Oximetry 01/16/21 01/16/21 01/16/21 01:15 01:30 01:45 Temperature Pulse Rate 94 H 91 H 93 H Pulse Rate [ From Monitor] Respiratory 12 12 11 L Rate Blood Pressure 116/70 121/61 115/64 O2 Sat by Pulse 98 100 99 Oximetry 01/16/21 01/16/21 01/16/21 02:00 02:15 02:30 Temperature Pulse Rate 95 H 90 94 H Pulse Rate [ From Monitor] Respiratory 11 L 11 L 11 L Rate Blood Pressure 119/62 107/57 118/64 O2 Sat by Pulse 98 99 97 Oximetry 01/16/21 01/16/21 01/16/21 02:45 03:01 03:08 Temperature 98.4 F Pulse Rate 93 H 95 H Pulse Rate [ From Monitor] Respiratory 10 L 13 Rate Blood Pressure 118/55 112/67 O2 Sat by Pulse 99 96 Oximetry 01/16/21 01/16/21 01/16/21 03:15 03:30 03:45 Temperature Pulse Rate 96 H 93 H 94 H Pulse Rate [ From Monitor] Respiratory 12 12 11 L Rate Blood Pressure 104/65 113/59 88/50 O2 Sat by Pulse 97 98 Oximetry 01/16/21 01/16/21 01/16/21 04:00 04:15 04:30 Temperature Pulse Rate 90 89 95 H Pulse Rate [ From Monitor] Respiratory 10 L 10 L 8 L Rate Blood Pressure 98/59 98/62 93/54 O2 Sat by Pulse 98 98 96 Oximetry 01/16/21 01/16/21 01/16/21 04:45 05:00 05:15 Temperature Pulse Rate 94 H 96 H 94 H Pulse Rate [ From Monitor] Respiratory 9 L 13 11 L Rate Blood Pressure 100/52 104/56 117/66 O2 Sat by Pulse 98 96 99 Oximetry 01/16/21 01/16/21 01/16/21 05:30 05:45 06:00 Temperature Pulse Rate 96 H 98 H 96 H Pulse Rate [ From Monitor] Respiratory 12 11 L 10 L Rate Blood Pressure 118/64 123/65 118/60 O2 Sat by Pulse 98 98 Oximetry 01/16/21 01/16/21 01/16/21 06:15 06:30 06:46 Temperature Pulse Rate 91 H 93 H 102 H Pulse Rate [ From Monitor] Respiratory 12 14 16 Rate Blood Pressure 125/63 125/63 O2 Sat by Pulse Oximetry 05/01/16/21 01/16/21 07:00 07:16 07:30 Temperature Pulse Rate 95 H 96 H 92 H Pulse Rate [ From Monitor] Respiratory 12 11 L 11 L Rate Blood Pressure 121/68 124/68 124/68 O2 Sat by Pulse Oximetry 01/16/21 01/16/21 01/16/21 07:45 08:00 08:15 Temperature 97.7 F Pulse Rate 95 H 97 H Pulse Rate [ From Monitor] Respiratory 11 L 12 Rate Blood Pressure 135/73 125/75 122/67 O2 Sat by Pulse Oximetry 01/16/21 08:30 Temperature Pulse Rate Pulse Rate [ From Monitor] Respiratory Rate Blood Pressure 132/59 O2 Sat by Pulse 87 Oximetry Constitutional: no acute distress, alert Eyes: non-icteric ENT: oropharynx dry Neck: supple, no lymphadenopathy, no JVD Effort: normal Ascultation: Bilateral: clear, diminished breath sounds Cardiovascular: regular rate and rhythm, other (S1,S2) Gastrointestinal: normoactive bowel sounds, soft, non-tender Integumentary: normal Extremities: no cyanosis, no edema, pulses normal Neurologic: non-focal exam, pupils equal and round, CN II-XII normal, motor strength normal and Psychiatric: mood appropriate, affect normal CBC and BMP: 01/15/21 12:49 01/16/21 14:14 ABG, PT/INR, D-dimer: PT/INR, D-dimer PT 13.7 Sec. (12.2-14.9) 01/15/21 12:49 INR 1.06 (0.87-1.13) 01/15/21 12:49 D-Dimer 1959.83 ng/mlDDU (0-234) H 01/15/21 12:49 Abnormal lab findings: Abnormal Labs 01/15/21 01/15/21 01/15/21 12:46 12:49 12:49 WBC 12.0 H MCV 101 H RDW 17.6 H Lymph % (Auto) 3.7 L [place] % (Auto) 11.2 H Lymph # (Auto) 0.4 L [place] # (Auto) 1.3 H Seg Neutrophils % 84.7 H Seg Neutrophils # 10.1 H D-Dimer 1959.83 H VBG pH 7.152 L* Sodium Potassium Chloride Carbon Dioxide BUN Creatinine Glucose POC Glucose Lactic Acid Calcium Magnesium Alkaline Phosphatase Albumin TSH Salicylates Acetaminophen 01/15/21 01/15/21 01/15/21 12:49 12:54 13:32 WBC MCV RDW Lymph % (Auto) [place] % (Auto) Lymph # (Auto) [place] # (Auto) Seg Neutrophils % Seg Neutrophils # D-Dimer VBG pH Sodium 133 L Potassium 5.9 H Chloride 91.2 L Carbon Dioxide 10 L BUN 34 H Creatinine 1.9 H Glucose 644 H* POC Glucose > 600 H Lactic Acid Calcium Magnesium 2.50 H Alkaline Phosphatase 164 H Albumin 3.6 L TSH 4.990 H Salicylates Acetaminophen 01/15/21 01/15/21 01/15/21 13:32 13:32 13:32 WBC MCV RDW Lymph % (Auto) [place] % (Auto) Lymph # (Auto) [place] # (Auto) Seg Neutrophils % Seg Neutrophils # D-Dimer VBG pH Sodium Potassium Chloride Carbon Dioxide BUN Creatinine Glucose POC Glucose Lactic Acid 5.40 H* Calcium Magnesium Alkaline Phosphatase Albumin TSH Salicylates < 0.3 L Acetaminophen 5.0 L 01/15/21 01/15/21 01/15/21 15:01 15:01 15:01 WBC MCV RDW Lymph % (Auto) [place] % (Auto) Lymph # (Auto) [place] # (Auto) Seg Neutrophils % Seg Neutrophils # D-Dimer VBG pH Sodium 133 L Potassium 5.2 H Chloride 95.2 L Carbon Dioxide 15 L BUN 34 H Creatinine 1.8 H Glucose 560 H* POC Glucose Lactic Acid 5.30 H* Calcium Magnesium 2.40 H Alkaline Phosphatase Albumin TSH Salicylates Acetaminophen 01/15/21 01/15/21 01/15/21 16:31 16:31 17:13 WBC MCV RDW Lymph % (Auto) [place] % (Auto) Lymph # (Auto) [place] # (Auto) Seg Neutrophils % Seg Neutrophils # D-Dimer VBG pH Sodium 135 L 136 L Potassium Chloride Carbon Dioxide 18 L 18 L BUN 32 H 29 H Creatinine 1.6 H 1.4 H Glucose 431 H 363 H POC Glucose Lactic Acid 4.20 H* Calcium 8.2 L Magnesium Alkaline Phosphatase Albumin TSH Salicylates Acetaminophen 01/15/21 01/15/21 01/15/21 17:13 18:11 18:30 WBC MCV RDW Lymph % (Auto) [place] % (Auto) Lymph # (Auto) [place] # (Auto) Seg Neutrophils % Seg Neutrophils # D-Dimer VBG pH Sodium Potassium Chloride Carbon Dioxide BUN Creatinine Glucose POC Glucose 283 H 321 H Lactic Acid 3.50 H* Calcium Magnesium Alkaline Phosphatase Albumin TSH Salicylates Acetaminophen 01/15/21 01/15/21 01/15/21 19:52 21:01 22:01 WBC MCV RDW Lymph % (Auto) [place] % (Auto) Lymph # (Auto) [place] # (Auto) Seg Neutrophils % Seg Neutrophils # D-Dimer VBG pH Sodium Potassium Chloride Carbon Dioxide BUN Creatinine Glucose POC Glucose 233 H 185 H 146 H Lactic Acid Calcium Magnesium Alkaline Phosphatase Albumin TSH Salicylates Acetaminophen 01/15/21 01/15/21 01/15/21 22:10 22:10 23:03 WBC MCV RDW Lymph % (Auto) [place] % (Auto) Lymph # (Auto) [place] # (Auto) Seg Neutrophils % Seg Neutrophils # D-Dimer VBG pH Sodium Potassium Chloride Carbon Dioxide 21 L BUN 26 H Creatinine Glucose 199 H POC Glucose 134 H Lactic Acid 2.70 H* Calcium Magnesium Alkaline Phosphatase Albumin TSH Salicylates Acetaminophen 01/16/21 01/16/21 01/16/21 00:04 02:45 08:42 WBC MCV RDW Lymph % (Auto) [place] % (Auto) Lymph # (Auto) [place] # (Auto) Seg Neutrophils % Seg Neutrophils # D-Dimer VBG pH Sodium Potassium Chloride Carbon Dioxide 21 L BUN 22 H Creatinine Glucose 108 H 103 H POC Glucose 117 H Lactic Acid Calcium 8.2 L Magnesium Alkaline Phosphatase Albumin TSH Salicylates Acetaminophen Allied health notes reviewed: nursing
[2021-01-16] MEDS ORDERED: DEXTROSE 50% IN WATER (25GM) 50 ML SYRINGE IV PRN (11:19)
--- NOTE | 2021-01-16 11:21 | Progress Note ---
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 Patient is confused with diminished cognition at the time my evaluation is unable to provide history. Patient history taken from EMS staff, ED staff, as well as patient family was at bedside during exam and interview. As per family, the patient has experienced increased confusion and weakness over the past 2 days. The patient was found to have an elevated blood glucose today. EMS was subsequently notified and upon arrival the patient was found to be in distress and subsequently transported to [facility] for further care and evaluation of the aforementioned symptoms. The patient was seen and evaluated in the emergency department. All lab and image studies reviewed. Patient found to have diabetic ketoacidosis, TONI with ATN, metabolic acidosis as well as systemic inflammatory response syndrome. Patient admitted to ICU and initiated on insulin drip as well as IV fluid resuscitation therapy. Critical care team consulted. No reports of fever, chills, chest pain, palpitation, productive cough, skin rash, recent ill contacts, or known exposure to COVID-19. Patient has diminished cognition at the time my evaluation but has a positive gag reflex and is able to protect his airway without difficulty. Advanced care planning conducted in ED. 01/16: Patient's gap has closed insulin transition to subcu with basal control. Will transfer patient to telemetry. At this point I do not have access to family information to contact them to see if patient was compliant with the medications or if any other etiology led to DKA. We will continue current work- up and evaluate. There was a mention of chest pain in the ER documentation although patient stated that he was fine I am not sure if this is during the altered sensorium part will further reevaluate this and see if patient will benefit from outpatient cardiac work-up. (1) Diabetic ketoacidosis Current Visit: Yes Status: Acute Plan to address problem: DKA protocol: Admit to ICU, insulin drip, IV fluid resuscitation therapy, serial BMP, monitor anion gap, supportive care. (2) Systemic inflammatory response syndrome (SIRS) Current Visit: Yes Status: Acute Plan to address problem: CBC, CMP, empiric IV antibiotic therapy x1 dose (3) Acidosis Current Visit: Yes Status: Acute Plan to address problem: IV fluid resuscitation therapy, BMP, repeat BMP in a.m. (4) Acute kidney injury (TONI) with acute tubular necrosis (ATN) Current Visit: Yes Status: Acute Plan to address problem: IV fluid resuscitation therapy, monitor urine output every shift, avoid n ephrotoxic agents, repeat BMP in a.m. to monitor serum creatinine as well as GFR (5) acute metabolic encephalopathy now resolved (6) dementia appears to be at baseline (7) DVT prophylaxis Current Visit: Yes Status: Acute Plan to address problem: SCD to bilateral lower extremities while in bed, patient is ambulatory (8) Advance care planning Current Visit: Yes Status: Acute Plan to address problem: Disease education conducted, care plan discussed, diagnosis discussed, prognosis discussed, patient is full code, patient family acknowledges understanding agreement with care plan, +30 minutes. History Interval history: Patient seen and examined resting comfortable,, he is tells me he knows where he has not correctly identifies himself place and time. He does not know why he went into DKA. But does not remember much activity following that. Hospitalist Physical - Physical exam Narrative exam: General appearance: Present: mild distress - EENT Eyes: Present: PERRL ENT: hearing intact, clear oral mucosa - Neck Neck: Present: supple, normal ROM - Respiratory Respiratory effort: normal Respiratory: bilateral: CTA - Cardiovascular Heart Sounds: Present: S1 & S2. Absent: rub, click - Extremities Extremities: pulses symmetrical, No edema Peripheral Pulses: within normal limits - Abdominal General gastrointestinal: Present: soft, non-tender, non-distended, normal bowel sounds Male genitourinary: Present: normal - Integumentary Integumentary: Present: clear, warm, dry - Musculoskeletal Musculoskeletal: generalized weakness - Psychiatric Psychiatric: appropriate mood/affect, no intact judgment & insight, no memory intact - Neurologic Neurologic: CNII-XII intact, no focal deficits, moves all extremities, no gait normal - Constitutional Vitals: Temp Pulse Resp BP Pulse Ox 97.7 F 97 H 12 132/59 87 01/16/21 08:00 01/16/21 08:00 01/16/21 08:00 01/16/21 08:30 01/16/21 08:30 General appearance: Present: mild distress HEART Score - HEART Score EKG: Non-specific Age: > 65 Risk factors: 1-2 risk factors Troponin: Troponin T 0.012 ng/mL (0.00-0.029) 01/15/21 13:32 Troponin: < normal limit - Critical Actions Critical Actions: 4-6 pts:12-16.6% risk of adverse cardiac event. Should be admitted Results - Labs CBC & Chem 7: 01/15/21 12:49 01/16/21 08:42 Labs: Laboratory Last Values WBC 12.0 K/mm3 (4.5-11.0) H 01/15/21 12:49 RBC 4.21 M/mm3 (3.65-5.03) 01/15/21 12:49 Hgb 13.5 gm/dl (11.8-15.2) 01/15/21 12:49 Hct 42.7 % (35.5-45.6) 01/15/21 12:49 MCV 101 fl (84-94) H 01/15/21 12:49 MCH 32 pg (28-32) 01/15/21 12:49 MCHC 32 % (32-34) 01/15/21 12:49 RDW 17.6 % (13.2-15.2) H 01/15/21 12:49 Plt Count 310 K/mm3 (140-440) 01/15/21 12:49 Lymph % (Auto) 3.7 % (13.4-35.0) L 01/15/21 12:49 [place] % (Auto) 11.2 % (0.0-7.3) H 01/15/21 12:49 Eos % (Auto) 0.0 % (0.0-4.3) 01/15/21 12:49 Baso % (Auto) 0.4 % (0.0-1.8) 01/15/21 12:49 Lymph # (Auto) 0.4 K/mm3 (1.2-5.4) L 01/15/21 12:49 [place] # (Auto) 1.3 K/mm3 (0.0-0.8) H 01/15/21 12:49 Eos # (Auto) 0.0 K/mm3 (0.0-0.4) 01/15/21 12:49 Baso # (Auto) 0.0 K/mm3 (0.0-0.1) 01/15/21 12:49 Seg Neutrophils % 84.7 % (40.0-70.0) H 01/15/21 12:49 Seg Neutrophils # 10.1 K/mm3 (1.8-7.7) H 01/15/21 12:49 PT 13.7 Sec. (12.2-14.9) 01/15/21 12:49 INR 1.06 (0.87-1.13) 01/15/21 12:49 D-Dimer 1959.83 ng/mlDDU (0-234) H 01/15/21 12:49 VBG pH 7.152 (7.320-7.420) L* 01/15/21 12:46 Sodium 138 mmol/L (137-145) 01/16/21 08:42 Potassium 4.2 mmol/L (3.6-5.0) 01/16/21 08:42 Chloride 105.4 mmol/L (98-107) 01/16/21 08:42 Carbon Dioxide 21 mmol/L (22-30) L 01/16/21 08:42 Anion Gap 16 mmol/L 01/16/21 08:42 BUN 17 mg/dL (9-20) 01/16/21 08:42 Creatinine 1.0 mg/dL (0.8-1.3) 01/16/21 08:42 Estimated GFR > 60 ml/min 01/16/21 08:42 BUN/Creatinine Ratio 17 % 01/16/21 08:42 Glucose 103 mg/dL (75-100) H 01/16/21 08:42 POC Glucose 118 mg/dL (70-105) H 01/16/21 07:33 Ketones Quantitative Moderate (Negative) 01/15/21 15:01 Lactic Acid 1.90 mmol/L (0.7-2.0) 01/16/21 02:45 Calcium 8.2 mg/dL (8.4-10.2) L 01/16/21 08:42 Phosphorus 4.30 mg/dL (2.5-4.5) 01/15/21 15:01 Magnesium 2.40 mg/dL (1.7-2.3) H 01/15/21 15:01 Total Bilirubin 0.40 mg/dL (0.1-1.2) 01/15/21 12:49 AST 39 units/L (5-40) 01/15/21 12:49 ALT 21 units/L (7-56) 01/15/21 12:49 Alkaline Phosphatase 164 units/L (35-129) H 01/15/21 12:49 Total Creatine Kinase 113 units/L (55-170) 01/15/21 12:49 Troponin T 0.012 ng/mL (0.00-0.029) 01/15/21 13:32 Total Protein 7.7 g/dL (6.3-8.2) 01/15/21 12:49 Albumin 3.6 g/dL (3.9-5) L 01/15/21 12:49 Albumin/Globulin Ratio 0.9 % 01/15/21 12:49 TSH 4.990 mlU/mL (0.270-4.200) H 01/15/21 13:32 Salicylates < 0.3 mg/dL (2.8-20.0) L 01/15/21 13:32 Acetaminophen 5.0 ug/mL (10.0-30.0) L 01/15/21 13:32 Microbiology: Microbiology 01/15/21 13:32 Peripheral/Venous Blood Culture - Preliminary Culture in Progress 01/15/21 13:32 Peripheral/Venous Blood Culture - Preliminary Culture in Progress [place]/IV: Voiding Method Condom Catheter Active Medications - Current Medications Current Medications: Generic Name Dose Route Start Last Admin Trade Name Freq PRN Reason Stop Dose Admin Albuterol 2.5 mg 01/15/21 14:45 Albuterol 2.5 Mg/3 Ml Nebu IH Q3HRT PRN Shortness Of Breath Atorvastatin Calcium 20 mg 01/15/21 22:00 01/15/21 21:47 Atorvastatin 20 Mg Tab PO 20 mg QHS STEPHANIE Administration Dextrose 0 ml 01/15/21 14:40 Dextrose 50% In Water (25gm) 50 Ml Syringe IV Q30MIN PRN Hypoglycemia Protocol Dextrose 50 ml 01/16/21 11:19 Dextrose 50% In Water (25gm) 50 Ml Syringe IV Q30MIN PRN Hypoglycemia Protocol Donepezil HCl 10 mg 01/16/21 10:00 01/16/21 10:44 Donepezil 10 Mg Tab PO 10 mg QDAY STEPHANIE Administration Duloxetine HCl 60 mg 01/16/21 10:00 01/16/21 10:44 Duloxetine 30 Mg Cap PO 60 mg QDAY STEPHANIE Administration Hydromorphone HCl 0.25 mg 01/15/21 18:09 01/15/21 18:15 Hydromorphone 1 Mg/1 Ml Inj IV 0.25 mg Q3H PRN Administration Pain , Severe (7-10) Insulin Human Regular 100 100 mls @ 1 mls/hr 01/15/21 15:00 01/16/21 06:00 units/ Sodium Chloride IV 0 units/hr TITR STEPHANIE 0 mls/hr Titration Protocol 1 UNITS/HR Potassium Chloride/Dextrose/Sod Cl 20 meq in 1,000 mls @ 125 mls/hr 01/15/21 15:00 01/15/21 21:43 D5w/0.45% Nacl/Kcl 20 Meq IV 125 mls/hr DIRECT STEPHANIE Administration Sodium Chloride 1,000 mls @ 100 mls/hr 01/15/21 15:00 Nacl 0.9% 1000 Ml IV DIRECT STEPHANIE Insulin Glargine 20 units 01/16/21 22:00 Insulin Glargine 100 Units/Ml SUB-Q QHS STEPHANIE Insulin Human Lispro 0 unit 01/16/21 11:30 Insulin Lispro 100 Unit/Ml SUB-Q ACHS STEPHANIE Protocol Memantine 10 mg 01/16/21 10:00 Memantine 10 Mg Tab PO QDAY STEPHANIE Pregabalin 75 mg 01/16/21 10:00 01/16/21 10:47 Pregabalin 75 Mg Cap PO 75 mg QDAY STEPHANIE Administration Sodium Chloride 10 ml 01/15/21 22:00 01/16/21 10:45 Sodium Chloride 0.9% 10 Ml Flush Syringe IV 10 ml BID STEPHANIE Administration Sodium Chloride 10 ml 01/15/21 14:45 Sodium Chloride 0.9% 10 Ml Flush Syringe IV PRN PRN LINE FLUSH Nutrition/Malnutrition Assess - Dietary Evaluation Nutrition/Malnutrition Findings: Nutrition Notes Start: 01/16/21 09:12 Freq: Status: Active Protocol: Document 01/16/21 09:12 LP (Rec: 01/16/21 09:16 LP [email or web address]) Nutrition Notes 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 Pt sleeping at time of visit. Burn Absent Trauma Absent GI Symptoms None Minimum of two criteria No physical signs of malnutrition #1 Nutrition Diagnosis Predicted suboptimal energy intake Etiology Advanced age/dementia As Evidenced by Signs and Symptoms Unable to obtain nutrition hx Is patient on ventilator? No Is Patient Ambulatory and/or Out of Bed No REE-([facility]-confined to bed) 1950.252 Calculation Used for Recommendations [facility] Additional Notes Protein needs are 86-103g (1-1 .2g/kg) Fluid needs are 1ml/kcal Nutrition Intervention Change Diet Order: Continue Add Supplement/Snack (indicate name/kcal Ensure HP BID /protein ) Provides kCal: 320 Provides Protein (gm) 32 Goal #1 Meet at least 80% of kcal and protein needs Anticipated Discharge Needs: Consistent CHO diet Follow-Up By: 01/18/21 Additional Comments Follow for intakes and ONS tolerance
[2021-01-16] MEDS: INSULIN LISPRO 100 UNIT/ML SUB-Q SCH ×3 (11:31→22:12)
[2021-01-16] MEDS ORDERED: INSULIN LISPRO 100 UNIT/ML SUB-Q SCH (12:00)
[2021-01-16 15:02] LABS: Bilirubin,Urine NEG (Negative); Blood,Urine MOD (Negative); Color,Urine Yellow (Yellow); Mucus,Urine FEW /HPF; Urobilinogen,Urine < 2.0 mg/dL (<2.0); WBC,Urine < 1.0 /HPF (0.0-6.0)
[2021-01-16 15:27] LABS: BUN/Creatinine Ratio 19; Blood Urea Nitrogen 15 mg/dL (9-20); Calcium 8.6 mg/dL (8.4-10.2); Hemolysis Index 91
[2021-01-16] MEDS ORDERED: INSULIN GLARGINE 100 UNITS/ML SUB-Q SCH (22:00)
[2021-01-17] MEDS ORDERED: INSULIN REGULAR, HUMAN 100 UNITS/1 ML SUB-Q ONE (08:11)
[2021-01-17] MEDS ORDERED: INSULIN GLARGINE 100 UNITS/ML SUB-Q SCH ×2 (08:50→22:00)
--- NOTE | 2021-01-17 08:51 | Progress Note ---
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 Patient is confused with diminished cognition at the time my evaluation is unable to provide history. Patient history taken from EMS staff, ED staff, as well as patient family was at bedside during exam and interview. As per family, the patient has experienced increased confusion and weakness over the past 2 days. The patient was found to have an elevated blood glucose today. EMS was subsequently notified and upon arrival the patient was found to be in distress and subsequently transported to [facility] for further care and evaluation of the aforementioned symptoms. The patient was seen and evaluated in the emergency department. All lab and image studies reviewed. Patient found to have diabetic ketoacidosis, TONI with ATN, metabolic acidosis as well as systemic inflammatory response syndrome. Patient admitted to ICU and initiated on insulin drip as well as IV fluid resuscitation therapy. Critical care team consulted. No reports of fever, chills, chest pain, palpitation, productive cough, skin rash, recent ill contacts, or known exposure to COVID-19. Patient has diminished cognition at the time my evaluation but has a positive gag reflex and is able to protect his airway without difficulty. Advanced care planning conducted in ED. 01/16: Patient's gap has closed insulin transition to subcu with basal control. Will transfer patient to telemetry. At this point I do not have access to family information to contact them to see if patient was compliant with the medications or if any other etiology led to DKA. We will continue current work- up and evaluate. There was a mention of chest pain in the ER documentation although patient stated that he was fine I am not sure if this is during the altered sensorium part will further reevaluate this and see if patient will benefit from outpatient cardiac work-up. 01/17: Blood sugar mildly elevated will give additional unit of insulin at this time. Will adjust sliding scale and Lantus. Fortunately I am unable to contact the family the med reconciliation done was incorrect. I do not have information on his home medication in respect to diabetes. I do know that he does have a history of diabetes and this is not a new diagnosis as I see that there is some strips ordered under his name. Anticipate possible discharge in a.m. (1) Diabetic ketoacidosis Current Visit: Yes Status: Acute Plan to address problem: DKA protocol: Admit to ICU, insulin drip, IV fluid resuscitation therapy, serial BMP, monitor anion gap, supportive care. (2) Systemic inflammatory response syndrome (SIRS) Current Visit: Yes Status: Acute Plan to address problem: CBC, CMP, empiric IV antibiotic therapy x1 dose (3) Acidosis Current Visit: Yes Status: Acute Plan to address problem: IV fluid resuscitation therapy, BMP, repeat BMP in a.m. (4) Acute kidney injury (TONI) with acute tubular necrosis (ATN) Current Visit: Yes Status: Acute Plan to address problem: IV fluid resuscitation therapy, monitor urine output every shift, avoid nephrotoxic agents, repeat BMP in a.m. to monitor serum creatinine as well as GFR (5) acute metabolic encephalopathy now resolved (6) dementia appears to be at baseline (7) DVT prophylaxis Current Visit: Yes Status: Acute Plan to address problem: SCD to bilateral lower extremities while in bed, patient is ambulatory (8) Advance care planning Current Visit: Yes Status: Acute Plan to address problem: Disease education conducted, care plan discussed, diagnosis discussed, prognosis discussed, patient is full code, patient family acknowledges understanding agreement with care plan, +30 minutes. History Interval history: Patient seen and examined resting comfortable, a bit confused when he woke up this morning but understands he is not at home. No new complaints Hospitalist Physical - Physical exam Narrative exam: General appearance: Present: mild distress - EENT Eyes: Present: PERRL ENT: hearing intact, clear oral mucosa - Neck Neck: Present: supple, normal ROM - Respiratory Respiratory effort: normal Respiratory: bilateral: CTA - Cardiovascular Heart Sounds: Present: S1 & S2. Absent: rub, click - Extremities Extremities: pulses symmetrical, No edema Peripheral Pulses: within normal limits - Abdominal General gastrointestinal: Present: soft, non-tender, non-distended, normal bowel sounds Male genitourinary: Present: normal - Integumentary Integumentary: Present: clear, warm, dry - Musculoskeletal Musculoskeletal: generalized weakness - Psychiatric Psychiatric: appropriate mood/affect, no intact judgment & insight, no memory intact - Neurologic Neurologic: CNII-XII intact, no focal deficits, moves all extremities, no gait normal - Constitutional Vitals: Temp Pulse Resp BP Pulse Ox 97.9 F 96 H 18 139/82 100 01/17/21 07:46 01/17/21 07:46 01/17/21 07:46 01/17/21 07:46 01/17/21 07:46 General appearance: Present: mild distress HEART Score - HEART Score EKG: Non-specific Age: > 65 Risk factors: 1-2 risk factors Troponin: Troponin T 0.012 ng/mL (0.00-0.029) 01/15/21 13:32 Troponin: < normal limit - Critical Actions Critical Actions: 4-6 pts:12-16.6% risk of adverse cardiac event. Should be ad mitted Results - Labs CBC & Chem 7: 01/15/21 12:49 01/16/21 14:14 Labs: Laboratory Last Values WBC 12.0 K/mm3 (4.5-11.0) H 01/15/21 12:49 RBC 4.21 M/mm3 (3.65-5.03) 01/15/21 12:49 Hgb 13.5 gm/dl (11.8-15.2) 01/15/21 12:49 Hct 42.7 % (35.5-45.6) 01/15/21 12:49 MCV 101 fl (84-94) H 01/15/21 12:49 MCH 32 pg (28-32) 01/15/21 12:49 MCHC 32 % (32-34) 01/15/21 12:49 RDW 17.6 % (13.2-15.2) H 01/15/21 12:49 Plt Count 310 K/mm3 (140-440) 01/15/21 12:49 Lymph % (Auto) 3.7 % (13.4-35.0) L 01/15/21 12:49 [place] % (Auto) 11.2 % (0.0-7.3) H 01/15/21 12:49 Eos % (Auto) 0.0 % (0.0-4.3) 01/15/21 12:49 Baso % (Auto) 0.4 % (0.0-1.8) 01/15/21 12:49 Lymph # (Auto) 0.4 K/mm3 (1.2-5.4) L 01/15/21 12:49 [place] # (Auto) 1.3 K/mm3 (0.0-0.8) H 01/15/21 12:49 Eos # (Auto) 0.0 K/mm3 (0.0-0.4) 01/15/21 12:49 Baso # (Auto) 0.0 K/mm3 (0.0-0.1) 01/15/21 12:49 Seg Neutrophils % 84.7 % (40.0-70.0) H 01/15/21 12:49 Seg Neutrophils # 10.1 K/mm3 (1.8-7.7) H 01/15/21 12:49 PT 13.7 Sec. (12.2-14.9) 01/15/21 12:49 INR 1.06 (0.87-1.13) 01/15/21 12:49 D-Dimer 1959.83 ng/mlDDU (0-234) H 01/15/21 12:49 VBG pH 7.152 (7.320-7.420) L* 01/15/21 12:46 Sodium 134 mmol/L (137-145) L 01/16/21 14:14 Potassium 4.3 mmol/L (3.6-5.0) 01/16/21 14:14 Chloride 102.2 mmol/L (98-107) 01/16/21 14:14 Carbon Dioxide 18 mmol/L (22-30) L 01/16/21 14:14 Anion Gap 18 mmol/L 01/16/21 14:14 BUN 15 mg/dL (9-20) 01/16/21 14:14 Creatinine 0.8 mg/dL (0.8-1.3) 01/16/21 14:14 Estimated GFR > 60 ml/min 01/16/21 14:14 BUN/Creatinine Ratio 19 % 01/16/21 14:14 Glucose 193 mg/dL (75-100) H 01/16/21 14:14 POC Glucose 431 mg/dL (70-105) H 01/16/21 20:45 Ketones Quantitative Moderate (Negative) 01/15/21 15:01 Lactic Acid 1.90 mmol/L (0.7-2.0) 01/16/21 02:45 Calcium 8.6 mg/dL (8.4-10.2) 01/16/21 14:14 Phosphorus 4.30 mg/dL (2.5-4.5) 01/15/21 15:01 Magnesium 2.40 mg/dL (1.7-2.3) H 01/15/21 15:01 Total Bilirubin 0.40 mg/dL (0.1-1.2) 01/15/21 12:49 AST 39 units/L (5-40) 01/15/21 12:49 ALT 21 units/L (7-56) 01/15/21 12:49 Alkaline Phosphatase 164 units/L (35-129) H 01/15/21 12:49 Total Creatine Kinase 113 units/L (55-170) 01/15/21 12:49 Troponin T 0.012 ng/mL (0.00-0.029) 01/15/21 13:32 Total Protein 7.7 g/dL (6.3-8.2) 01/15/21 12:49 Albumin 3.6 g/dL (3.9-5) L 01/15/21 12:49 Albumin/Globulin Ratio 0.9 % 01/15/21 12:49 TSH 4.990 mlU/mL (0.270-4.200) H 01/15/21 13:32 Urine Color Yellow (Yellow) 01/16/21 04:42 Urine Turbidity Cloudy (Clear) 01/16/21 04:42 Urine pH 5.0 (5.0-7.0) 01/16/21 04:42 Ur Specific [place] 1.022 (1.003-1.030) 01/16/21 04:42 Urine Protein 30 mg/dl mg/dL (Negative) 01/16/21 04:42 Urine Glucose (UA) >=500 mg/dL (Negative) 01/16/21 04:42 Urine Ketones 20 mg/dL (Negative) 01/16/21 04:42 Urine Ketones 20 mg/dL (Negative) 01/16/21 04:42 Urine Blood Mod (Negative) 01/16/21 04:42 Urine Nitrite Neg (Negative) 01/16/21 04:42 Urine Bilirubin Neg (Negative) 01/16/21 04:42 Urine Urobilinogen < 2.0 mg/dL (<2.0) 01/16/21 04:42 Ur Leukocyte Esterase Neg (Negative) 01/16/21 04:42 Urine WBC (Auto) < 1.0 /HPF (0.0-6.0) 01/16/21 04:42 Urine RBC (Auto) 11.0 /HPF (0.0-6.0) 01/16/21 04:42 Urine Mucus Few /HPF 01/16/21 04:42 Urine Yeast (Budding) 3+ /HPF 01/16/21 04:42 Salicylates < 0.3 mg/dL (2.8-20.0) L 01/15/21 13:32 Acetaminophen 5.0 ug/mL (10.0-30.0) L 01/15/21 13:32 Coronavirus (PCR) Negative (Negative) 01/16/21 Unknown Microbiology: Microbiology 01/15/21 13:32 Peripheral/Venous Blood Culture - Preliminary NO GROWTH AFTER 24 HOURS 01/15/21 13:32 Peripheral/Venous Blood Culture - Preliminary NO GROWTH AFTER 24 HOURS [place]/IV: Voiding Method Urinal Active Medications - Current Medications Current Medications: Generic Name Dose Route Start Last Admin Trade Name Freq PRN Reason Stop Dose Admin Albuterol 2.5 mg 01/15/21 14:45 Albuterol 2.5 Mg/3 Ml Nebu IH Q3HRT PRN Shortness Of Breath Atorvastatin Calcium 20 mg 01/15/21 22:00 01/16/21 22:11 Atorvastatin 20 Mg Tab PO 20 mg QHS STEPHANIE Administration Dextrose 50 ml 01/16/21 11:19 Dextrose 50% In Water (25gm) 50 Ml Syringe IV Q30MIN PRN Hypoglycemia Protocol Donepezil HCl 10 mg 01/16/21 10:00 01/16/21 10:44 Donepezil 10 Mg Tab PO 10 mg QDAY STEPHANIE Administration Duloxetine HCl 60 mg 01/16/21 10:00 01/16/21 10:44 Duloxetine 30 Mg Cap PO 60 mg QDAY STEPHANIE Administration Hydromorphone HCl 0.25 mg 01/15/21 18:09 01/15/21 18:15 Hydromorphone 1 Mg/1 Ml Inj IV 0.25 mg Q3H PRN Administration Pain , Severe (7-10) Insulin Glargine 20 units 01/16/21 22:00 01/16/21 22:53 Insulin Glargine 100 Units/Ml SUB-Q 20 units QHS STEPHANIE Administration Insulin Human Lispro 0 unit 01/16/21 11:30 01/16/21 22:12 Insulin Lispro 100 Unit/Ml SUB-Q 10 unit ACHS STEPHANIE Administration Protocol Memantine 10 mg 01/16/21 10:00 01/16/21 10:20 Memantine 10 Mg Tab PO 10 mg QDAY STEPHANIE Administration Pregabalin 75 mg 01/16/21 10:00 01/16/21 10:47 Pregabalin 75 Mg Cap PO 75 mg QDAY STEPHANIE Administration Sodium Chloride 10 ml 01/15/21 22:00 01/16/21 22:27 Sodium Chloride 0.9% 10 Ml Flush Syringe IV 10 ml BID STEPHANIE Administration Sodium Chloride 10 ml 01/15/21 14:45 Sodium Chloride 0.9% 10 Ml Flush Syringe IV PRN PRN LINE FLUSH Nutrition/Malnutrition Assess - Dietary Evaluation Nutrition/Malnutrition Findings: Nutrition Notes Start: 01/16/21 09:12 Freq: Status: Active Protocol: Document 01/16/21 09:12 LP (Rec: 01/16/21 09:16 LP [email or web address]) Nutrition Notes 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 Pt sleeping at time of visit. Burn Absent Trauma Absent GI Symptoms None Minimum of two criteria No physical signs of malnutrition #1 Nutrition Diagnosis Predicted suboptimal energy intake Etiology Advanced age/dementia As Evidenced by Signs and Symptoms Unable to obtain nutrition hx Is patient on ventilator? No Is Patient Ambulatory and/or Out of Bed No REE-([facility]-confined to bed) 1950.252 Calculation Used for Recommendations [facility] Additional Notes Protein needs are 86-103g (1-1 .2g/kg) Fluid needs are 1ml/kcal Nutrition Intervention Change Diet Order: Continue Add Supplement/Snack (indicate name/kcal Ensure HP BID /protein ) Provides kCal: 320 Provides Protein (gm) 32 Goal #1 Meet at least 80% of kcal and protein needs Anticipated Discharge Needs: Consistent CHO diet Follow-Up By: 01/18/21 Additional Comments Follow for intakes and ONS tolerance
[2021-01-17] MEDS: INSULIN LISPRO 100 UNIT/ML SUB-Q SCH ×5 (09:53→22:22)
[2021-01-17] MEDS: MEMANTINE 10 MG TAB PO SCH (10:45)
[2021-01-17] MEDS: DULoxetine 30 MG CAP PO SCH (10:45)
[2021-01-17] MEDS: DONEPEZIL 10 MG TAB PO SCH (10:45)
[2021-01-17] MEDS: PREGABALIN 75 MG CAP PO SCH (10:45)
--- NOTE | 2021-01-17 14:30 | Progress Note ---
Assessment and Plan (1) Diabetic ketoacidosis Current Visit: Yes Status: Acute Plan to address problem: Gap has closed. Diabetes education Glycemic control, keep blood glucose <180mg/dL, avoid hypoglycemia The patient has recent memory loss, and appears to have early stage dementia. (2) Systemic inflammatory response syndrome (SIRS) Current Visit: Yes Status: Acute Plan to address problem: CBC, CMP, empiric IV antibiotics De-escalate antibiotics based on clinical response and culture data as it becomes available (3) Acidosis Current Visit: Yes Status: Acute Plan to address problem: Monitor (4) Acute kidney injury (TONI) with acute tubular necrosis (ATN) Current Visit: Yes Status: Acute Plan to address problem: Continue to avoid nephrotoxic agents (5) DVT prophylaxis Current Visit: Yes Status: Acute Plan to address problem: Heparin Subjective Date of service: 01/17/21 Interval history: Follow up for DKA; SIRS Seen and examined. Vitals, labs, medications,chart reviewed. No acute overnight events, On going short term memory loss. Discussed with nursing staff and primary Attending. Patient's called this morning Patient denies any chest pain, no shortness of breath, no fevers or chills. No nausea or vomiting, no diarrhea. He is concerned that he cannot remember anything in his recent past Objective Vital Signs - 12hr 01/17/21 01/17/21 03:25 07:46 Temperature 98.0 F 97.9 F Pulse Rate 98 H 96 H Respiratory 16 18 Rate Blood Pressure 133/82 139/82 O2 Sat by Pulse 98 100 Oximetry Constitutional: no acute distress, alert Eyes: non-icteric ENT: oropharynx dry Neck: supple, no lymphadenopathy, no JVD Effort: normal Ascultation: Bilateral: clear, diminished breath sounds Cardiovascular: regular rate and rhythm, other (S1,S2) Gastrointestinal: normoactive bowel sounds, soft, non-tender Integumentary: normal Extremities: no cyanosis, no edema, pulses normal Neurologic: non-focal exam, pupils equal and round, CN II-XII normal, motor strength normal and Psychiatric: mood appropriate, anxious CBC and BMP: 01/15/21 12:49 01/16/21 14:14 ABG, PT/INR, D-dimer: PT/INR, D-dimer PT 13.7 Sec. (12.2-14.9) 01/15/21 12:49 INR 1.06 (0.87-1.13) 01/15/21 12:49 D-Dimer 1959.83 ng/mlDDU (0-234) H 01/15/21 12:49 Abnormal lab findings: Abnormal Labs 01/15/21 01/15/21 01/15/21 12:46 12:49 12:49 WBC 12.0 H MCV 101 H RDW 17.6 H Lymph % (Auto) 3.7 L [place] % (Auto) 11.2 H Lymph # (Auto) 0.4 L [place] # (Auto) 1.3 H Seg Neutrophils % 84.7 H Seg Neutrophils # 10.1 H D-Dimer 1959.83 H VBG pH 7.152 L* Sodium Potassium Chloride Carbon Dioxide BUN Creatinine Glucose POC Glucose Lactic Acid Calcium Magnesium Alkaline Phosphatase Albumin TSH Salicylates Acetaminophen 01/15/21 01/15/21 01/15/21 12:49 12:54 13:32 WBC MCV RDW Lymph % (Auto) [place] % (Auto) Lymph # (Auto) [place] # (Auto) Seg Neutrophils % Seg Neutrophils # D-Dimer VBG pH Sodium 133 L Potassium 5.9 H Chloride 91.2 L Carbon Dioxide 10 L BUN 34 H Creatinine 1.9 H Glucose 644 H* POC Glucose > 600 H Lactic Acid Calcium Magnesium 2.50 H Alkaline Phosphatase 164 H Albumin 3.6 L TSH 4.990 H Salicylates Acetaminophen 01/15/21 01/15/21 01/15/21 13:32 13:32 13:32 WBC MCV RDW Lymph % (Auto) [place] % (Auto) Lymph # (Auto) [place] # (Auto) Seg Neutrophils % Seg Neutrophils # D-Dimer VBG pH Sodium Potassium Chloride Carbon Dioxide BUN Creatinine Glucose POC Glucose Lactic Acid 5.40 H* Calcium Magnesium Alkaline Phosphatase Albumin TSH Salicylates < 0.3 L Acetaminophen 5.0 L 01/15/21 01/15/21 01/15/21 15:01 15:01 15:01 WBC MCV RDW Lymph % (Auto) [place] % (Auto) Lymph # (Auto) [place] # (Auto) Seg Neutrophils % Seg Neutrophils # D-Dimer VBG pH Sodium 133 L Potassium 5.2 H Chloride 95.2 L Carbon Dioxide 15 L BUN 34 H Creatinine 1.8 H Glucose 560 H* POC Glucose Lactic Acid 5.30 H* Calcium Magnesium 2.40 H Alkaline Phosphatase Albumin TSH Salicylates Acetaminophen 01/15/21 01/15/21 01/15/21 16:31 16:31 17:13 WBC MCV RDW Lymph % (Auto) [place] % (Auto) Lymph # (Auto) [place] # (Auto) Seg Neutrophils % Seg Neutrophils # D-Dimer VBG pH Sodium 135 L 136 L Potassium Chloride Carbon Dioxide 18 L 18 L BUN 32 H 29 H Creatinine 1.6 H 1.4 H Glucose 431 H 363 H POC Glucose Lactic Acid 4.20 H* Calcium 8.2 L Magnesium Alkaline Phosphatase Albumin TSH Salicylates Acetaminophen 01/15/21 01/15/21 01/15/21 17:13 18:11 18:30 WBC MCV RDW Lymph % (Auto) [place] % (Auto) Lymph # (Auto) [place] # (Auto) Seg Neutrophils % Seg Neutrophils # D-Dimer VBG pH Sodium Potassium Chloride Carbon Dioxide BUN Creatinine Glucose POC Glucose 283 H 321 H Lactic Acid 3.50 H* Calcium Magnesium Alkaline Phosphatase Albumin TSH Salicylates Acetaminophen 01/15/21 01/15/21 01/15/21 19:52 21:01 22:01 WBC MCV RDW Lymph % (Auto) [place] % (Auto) Lymph # (Auto) [place] # (Auto) Seg Neutrophils % Seg Neutrophils # D-Dimer VBG pH Sodium Potassium Chloride Carbon Dioxide BUN Creatinine Glucose POC Glucose 233 H 185 H 146 H Lactic Acid Calcium Magnesium Alkaline Phosphatase Albumin TSH Salicylates Acetaminophen 01/15/21 01/15/21 01/15/21 22:10 22:10 23:03 WBC MCV RDW Lymph % (Auto) [place] % (Auto) Lymph # (Auto) [place] # (Auto) Seg Neutrophils % Seg Neutrophils # D-Dimer VBG pH Sodium Potassium Chloride Carbon Dioxide 21 L BUN 26 H Creatinine Glucose 199 H POC Glucose 134 H Lactic Acid 2.70 H* Calcium Magnesium Alkaline Phosphatase Albumin TSH Salicylates Acetaminophen 01/16/21 01/16/21 01/16/21 00:04 02:45 07:33 WBC MCV RDW Lymph % (Auto) [place] % (Auto) Lymph # (Auto) [place] # (Auto) Seg Neutrophils % Seg Neutrophils # D-Dimer VBG pH Sodium Potassium Chloride Carbon Dioxide BUN 22 H Creatinine Glucose 108 H POC Glucose 117 H 118 H Lactic Acid Calcium Magnesium Alkaline Phosphatase Albumin TSH Salicylates Acetaminophen 01/16/21 01/16/2121 08:42 14:14 16:49 WBC MCV RDW Lymph % (Auto) [place] % (Auto) Lymph # (Auto) [place] # (Auto) Seg Neutrophils % Seg Neutrophils # D-Dimer VBG pH Sodium 134 L Potassium Chloride Carbon Dioxide 21 L 18 L BUN Creatinine Glucose 103 H 193 H POC Glucose 367 H Lactic Acid Calcium 8.2 L Magnesium Alkaline Phosphatase Albumin TSH Salicylates Acetaminophen 01/16/21 20:45 WBC MCV RDW Lymph % (Auto) [place] % (Auto) Lymph # (Auto) [place] # (Auto) Seg Neutrophils % Seg Neutrophils # D-Dimer VBG pH Sodium Potassium Chloride Carbon Dioxide BUN Creatinine Glucose POC Glucose 431 H Lactic Acid Calcium Magnesium Alkaline Phosphatase Albumin TSH Salicylates Acetaminophen Allied health notes reviewed: nursing
[2021-01-17] MEDS: metFORMIN 500 MG TAB PO SCH (16:33)
[2021-01-18] MEDS ORDERED: LORazepam 2 MG/ML VIAL IM ONE (02:55)
[2021-01-18] MEDS: INSULIN LISPRO 100 UNIT/ML SUB-Q SCH ×2 (08:11→12:20)
[2021-01-18] MEDS: metFORMIN 500 MG TAB PO SCH (08:13)
--- NOTE | 2021-01-18 09:17 | Progress Note ---
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 (2) Systemic inflammatory response syndrome (SIRS) Current Visit: Yes Status: Acute Plan to address problem: CBC, CMP, empiric IV antibiotics Stop antibiotics (3) Acidosis Current Visit: Yes Status: Acute Plan to address problem: Resolved (4) Acute kidney injury (TONI) with acute tubular necrosis (ATN) Current Visit: Yes Status: Acute Plan to address problem: Continue to avoid nephrotoxic agents (5) DVT prophylaxis Current Visit: Yes Status: Acute Plan to address problem: Heparin Discharge planning Subjective Date of service: 01/18/21 Interval history: Follow up for DKA; SIRS Seen and examined. Vitals, labs, medications,chart reviewed. No acute overnight events, On going short term memory loss. Discussed with nursing staff and primary Attending. Patient denies any chest pain, no shortness of breath, no fevers or chills. No nausea or vomiting, no diarrhea. Objective Vital Signs - 12hr 01/17/21 01/17/21 01/18/21 22:00 23:39 00:00 Temperature 98.0 F Pulse Rate 103 H 99 H Respiratory 18 Rate Blood Pressure 136/82 Blood Pressure [Left] O2 Sat by Pulse 98 98 Oximetry 01/18/21 08:16 Temperature 97.8 F Pulse Rate 101 H Respiratory 17 Rate Blood Pressure Blood Pressure 150/95 [Left] O2 Sat by Pulse 96 Oximetry Constitutional: no acute distress, alert Eyes: non-icteric ENT: oropharynx dry Neck: supple, no lymphadenopathy, no JVD Effort: normal Ascultation: Bilateral: clear, diminished breath sounds Cardiovascular: regular rate and rhythm, other (S1,S2) Gastrointestinal: normoactive bowel sounds, soft, non-tender Integumentary: normal Extremities: no cyanosis, no edema, pulses normal Neurologic: non-focal exam, pupils equal and round, CN II-XII normal, motor strength normal and Psychiatric: mood appropriate, anxious CBC and BMP: 01/15/21 12:49 01/16/21 14:14 ABG, PT/INR, D-dimer: PT/INR, D-dimer PT 13.7 Sec. (12.2-14.9) 01/15/21 12:49 INR 1.06 (0.87-1.13) 01/15/21 12:49 D-Dimer 1959.83 ng/mlDDU (0-234) H 01/15/21 12:49 Abnormal lab findings: Abnormal Labs 01/15/21 01/15/21 01/15/21 12:46 12:49 12:49 WBC 12.0 H MCV 101 H RDW 17.6 H Lymph % (Auto) 3.7 L [place] % (Auto) 11.2 H Lymph # (Auto) 0.4 L [place] # (Auto) 1.3 H Seg Neutrophils % 84.7 H Seg Neutrophils # 10.1 H D-Dimer 1959.83 H VBG pH 7.152 L* Sodium Potassium Chloride Carbon Dioxide BUN Creatinine Glucose POC Glucose Lactic Acid Calcium Magnesium Alkaline Phosphatase Albumin TSH Salicylates Acetaminophen 01/15/21 01/15/21 01/15/21 12:49 12:54 13:32 WBC MCV RDW Lymph % (Auto) [place] % (Auto) Lymph # (Auto) [place] # (Auto) Seg Neutrophils % Seg Neutrophils # D-Dimer VBG pH Sodium 133 L Potassium 5.9 H Chloride 91.2 L Carbon Dioxide 10 L BUN 34 H Creatinine 1.9 H Glucose 644 H* POC Glucose > 600 H Lactic Acid Calcium Magnesium 2.50 H Alkaline Phosphatase 164 H Albumin 3.6 L TSH 4.990 H Salicylates Acetaminophen 01/15/21 01/15/21 01/15/21 13:32 13:32 13:32 WBC MCV RDW Lymph % (Auto) [place] % (Auto) Lymph # (Auto) [place] # (Auto) Seg Neutrophils % Seg Neutrophils # D-Dimer VBG pH Sodium Potassium Chloride Carbon Dioxide BUN Creatinine Glucose POC Glucose Lactic Acid 5.40 H* Calcium Magnesium Alkaline Phosphatase Albumin TSH Salicylates < 0.3 L Acetaminophen 5.0 L 01/15/21 01/15/21 01/15/21 15:01 15:01 15:01 WBC MCV RDW Lymph % (Auto) [place] % (Auto) Lymph # (Auto) [place] # (Auto) Seg Neutrophils % Seg Neutrophils # D-Dimer VBG pH Sodium 133 L Potassium 5.2 H Chloride 95.2 L Carbon Dioxide 15 L BUN 34 H Creatinine 1.8 H Glucose 560 H* POC Glucose Lactic Acid 5.30 H* Calcium Magnesium 2.40 H Alkaline Phosphatase Albumin TSH Salicylates Acetaminophen 01/15/21 01/15/21 01/15/21 16:31 16:31 17:13 WBC MCV RDW Lymph % (Auto) [place] % (Auto) Lymph # (Auto) [place] # (Auto) Seg Neutrophils % Seg Neutrophils # D-Dimer VBG pH Sodium 135 L 136 L Potassium Chloride Carbon Dioxide 18 L 18 L BUN 32 H 29 H Creatinine 1.6 H 1.4 H Glucose 431 H 363 H POC Glucose Lactic Acid 4.20 H* Calcium 8.2 L Magnesium Alkaline Phosphatase Albumin TSH Salicylates Acetaminophen 01/15/21 01/15/21 01/15/21 17:13 18:11 18:30 WBC MCV RDW Lymph % (Auto) [place] % (Auto) Lymph # (Auto) [place] # (Auto) Seg Neutrophils % Seg Neutrophils # D-Dimer VBG pH Sodium Potassium Chloride Carbon Dioxide BUN Creatinine Glucose POC Glucose 283 H 321 H Lactic Acid 3.50 H* Calcium Magnesium Alkaline Phosphatase Albumin TSH Salicylates Acetaminophen 01/15/21 01/15/21 01/15/21 19:52 21:01 22:01 WBC MCV RDW Lymph % (Auto) [place] % (Auto) Lymph # (Auto) [place] # (Auto) Seg Neutrophils % Seg Neutrophils # D-Dimer VBG pH Sodium Potassium Chloride Carbon Dioxide BUN Creatinine Glucose POC Glucose 233 H 185 H 146 H Lactic Acid Calcium Magnesium Alkaline Phosphatase Albumin TSH Salicylates Acetaminophen 01/15/21 01/15/21 01/15/21 22:10 22:10 23:03 WBC MCV RDW Lymph % (Auto) [place] % (Auto) Lymph # (Auto) [place] # (Auto) Seg Neutrophils % Seg Neutrophils # D-Dimer VBG pH Sodium Potassium Chloride Carbon Dioxide 21 L BUN 26 H Creatinine Glucose 199 H POC Glucose 134 H Lactic Acid 2.70 H* Calcium Magnesium Alkaline Phosphatase Albumin TSH Salicylates Acetaminophen 01/16/21 01/16/21 01/16/21 00:04 02:45 07:33 WBC MCV RDW Lymph % (Auto) [place] % (Auto) Lymph # (Auto) [place] # (Auto) Seg Neutrophils % Seg Neutrophils # D-Dimer VBG pH Sodium Potassium Chloride Carbon Dioxide BUN 22 H Creatinine Glucose 108 H POC Glucose 117 H 118 H Lactic Acid Calcium Magnesium Alkaline Phosphatase Albumin TSH Salicylates Acetaminophen 01/16/21 01/16/21 01/16/21 08:42 14:14 16:49 WBC MCV RDW Lymph % (Auto) [place] % (Auto) Lymph # (Auto) [place] # (Auto) Seg Neutrophils % Seg Neutrophils # D-Dimer VBG pH Sodium 134 L Potassium Chloride Carbon Dioxide 21 L 18 L BUN Creatinine Glucose 103 H 193 H POC Glucose 367 H Lactic Acid Calcium 8.2 L Magnesium Alkaline Phosphatase Albumin TSH Salicylates Acetaminophen 01/16/21 01/17/21 01/17/21 20:45 11:53 16:54 WBC MCV RDW Lymph % (Auto) [place] % (Auto) Lymph # (Auto) [place] # (Auto) Seg Neutrophils % Seg Neutrophils # D-Dimer VBG pH Sodium Potassium Chloride Carbon Dioxide BUN Creatinine Glucose POC Glucose 431 H 273 H 422 H Lactic Acid Calcium Magnesium Alkaline Phosphatase Albumin TSH Salicylates Acetaminophen 01/17/21 20:08 WBC MCV RDW Lymph % (Auto) [place] % (Auto) Lymph # (Auto) [place] # (Auto) Seg Neutrophils % Seg Neutrophils # D-Dimer VBG pH Sodium Potassium Chloride Carbon Dioxide BUN Creatinine Glucose POC Glucose 291 H Lactic Acid Calcium Magnesium Alkaline Phosphatase Albumin TSH Salicylates Acetaminophen Allied health notes reviewed: nursing
--- NOTE | 2021-01-18 09:59 | Discharge Summary ---
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 Patient is confused with diminished cognition at the time my evaluation is unable to provide history. Patient history taken from EMS staff, ED staff, as well as patient family was at bedside during exam and interview. As per family, the patient has experienced increased confusion and weakness over the past 2 days. The patient was found to have an elevated blood glucose today. EMS was subsequently notified and upon arrival the patient was f ound to be in distress and subsequently transported to [facility] for further care and evaluation of the aforementioned symptoms. The patient was seen and evaluated in the emergency department. All lab and image studies reviewed. Patient found to have diabetic ketoacidosis, TONI with ATN, metabolic acidosis as well as systemic inflammatory response syndrome. Patient admitted to ICU and initiated on insulin drip as well as IV fluid resuscitation therapy. Critical care team consulted. No reports of fever, chills, chest pain, palpitation, productive cough, skin rash, recent ill contacts, or known exposure to COVID-19. Patient has diminished cognition at the time my evaluation but has a positive gag reflex and is able to protect his airway without difficulty. Advanced care planning conducted in ED. 01/16: Patient's gap has closed insulin transition to subcu with basal control. Will transfer patient to telemetry. At this point I do not have access to family information to contact them to see if patient was compliant with the medications or if any other etiology led to DKA. We will continue current work- up and evaluate. There was a mention of chest pain in the ER documentation although patient stated that he was fine I am not sure if this is during the altered sensorium part will further reevaluate this and see if patient will benefit from outpatient cardiac work-up. 01/17: Blood sugar mildly elevated will give additional unit of insulin at this time. Will adjust sliding scale and Lantus. Fortunately I am unable to contact the family the med reconciliation done was incorrect. I do not have information on his home medication in respect to diabetes. I do know that he does have a history of diabetes and this is not a new diagnosis as I see that there is some strips ordered under his name. Anticipate possible discharge in a.m. Spoke to patients spouse, the patient has hx of LABILE Blood glucose and also due to his Dementia he sneaks food per the spouse. They have estabilished with a physiciant to manage the BG. she is against use of lantus states it caused Diabetic Coma years ago and he was hospitalized for a long time. She will discuss with their doctor if this she should be an allergy documentation for him Will discontinue and start on metformin 500mg po BID. Patients spouse number which we just got is [phone] 01/18: Patient clinically stable this morning will be discharged home as discussed with the yesterday and will follow up with their regular doctor for continued management. (1) Diabetic ketoacidosis Current Visit: Yes Status: Acute Plan to address problem: DKA protocol: Admit to ICU, insulin drip, IV fluid resuscitation therapy, serial BMP, monitor anion gap, supportive care. (2) Systemic inflammatory response syndrome (SIRS) Current Visit: Yes Status: Acute Plan to address problem: CBC, CMP, empiric IV antibiotic therapy x1 dose (3) Acidosis Current Visit: Yes Status: Acute Plan to address problem: IV fluid resuscitation therapy, BMP, repeat BMP in a.m. (4) Acute kidney injury (TONI) with acute tubular necrosis (ATN) Current Visit: Yes Status: Acute Plan to address problem: IV fluid resuscitation therapy, monitor urine output every shift, avoid nephrotoxic agents, repeat BMP in a.m. to monitor serum creatinine as well as GFR (5) acute metabolic encephalopathy now resolved (6) dementia appears to be at baseline Disposition: DC-01 TO HOME OR SELFCARE Final Discharge Diagnosis (Prints w/discharge instructions): DKA Time spent for discharge: 35 mins Core Measure Documentation - Palliative Care Palliative Care/ Comfort Measures: Not Applicable - Core Measures Any of the following diagnoses?: none Exam - Physical Exam Narrative exam: General appearance: Present: mild distress - EENT Eyes: Present: PERRL ENT: hearing intact, clear oral mucosa - Neck Neck: Present: supple, normal ROM - Respiratory Respiratory effort: normal Respiratory: bilateral: CTA - Cardiovascular Heart Sounds: Present: S1 & S2. Absent: rub, click - Extremities Extremities: pulses symmetrical, No edema Peripheral Pulses: within normal limits - Abdominal General gastrointestinal: Present: soft, non-tender, non-distended, normal bowel sounds Male genitourinary: Present: normal - Integumentary Integumentary: Present: clear, warm, dry - Musculoskeletal Musculoskeletal: generalized weakness - Psychiatric Psychiatric: appropriate mood/affect, no intact judgment & insight, no memory intact - Neurologic Neurologic: CNII-XII intact, no focal deficits, moves all extremities, no gait normal - Constitutional Vitals: Temp Pulse Resp BP Pulse Ox 97.8 F 101 H 17 150/95 96 01/18/21 08:16 01/18/21 08:16 01/18/21 08:16 01/18/21 08:16 01/18/21 08:16 Plan Activity: advance as tolerated, fall precautions Diet: low fat Special Instructions: record daily weights, record daily BP diary, record blood sugar diary Plan of Treatment: Please note patient was started on Metformin as a new medication recommend checking renal function test in 2 to 3 days. Follow up with: PRIMARY CARE, [Primary Care Provider] - 3-5 Days Prescriptions: metFORMIN [Glucophage] 500 mg PO BIDDIAB #60 tablet Lispro Insulin [HumaLOG] 0 unit SUB-Q ACHS #10 ml Insulin NPH Human Isophane [Novolin N] 0 unit SQ ACHS #1 vial
[2021-01-18] MEDS: DULoxetine 30 MG CAP PO SCH (10:28)
[2021-01-18] MEDS: MEMANTINE 10 MG TAB PO SCH (10:29)
[2021-01-18] MEDS: PREGABALIN 75 MG CAP PO SCH (10:29)
[2021-01-18] MEDS: DONEPEZIL 10 MG TAB PO SCH (10:29)
[2021-01-18 12:18] VITALS: BP 151/80
--- NOTE | 2021-01-18 21:28 | Electrocardiograph Report ---
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
== END 2021-01-18 14:55 | disposition home or self-care (01) | DRG 637 ==
LOC: ED 12:33 → CC1 14:45 → 4A 01-16 12:44
PROVIDERS: ADMIT Internal Medicine; ATTEND Internal Medicine
DX: E11.10 Type 2 diabetes mellitus with ketoacidosis without coma (principal); N17.0 Acute kidney failure with tubular necrosis; G93.41 Metabolic encephalopathy; R65.10 Systemic inflammatory response syndrome (SIRS) of non-infectious origin without acute organ dysfunction; J90 Pleural effusion, not elsewhere classified; F03.90 Unspecified dementia, unspecified severity, without behavioral disturbance, psychotic disturbance, mood disturbance, and anxiety; N28.9 Disorder of kidney and ureter, unspecified; E86.0 Dehydration; I10 Essential (primary) hypertension; E78.5 Hyperlipidemia, unspecified; Z20.822 Contact with and (suspected) exposure to COVID-19; Z83.3 Family history of diabetes mellitus; Z82.49 Family history of ischemic heart disease and other diseases of the circulatory system
CPT/HCPCS: 36415; 70450; 71045; 71250; 78580; 80048; 80053; 80320; 81001; 82010; 82140; 82550; 82805; 82962; 83735; 84100; 84443; 84484; 85025; 85379; 85610; 87040; 93005; 96361; 96365; 96375; G0378; A9540; G0480; J0456; J0696; J1170; J1815; J2060; J7030; J7120; U0003